=== PATIENT | female | born 1965 | race Asian ===

== ENCOUNTER 2018-06-17 05:20 | Inpatient (IN) | payer OTHER ==
[~2018-06-17] VITALS: Ht 157.5 cm; Wt 76.9 kg
--- NOTE | 2018-06-17 05:35 | NUR ---
PT BIB [facility] PER MEDIC, PT C/O GENERALIZED WEAKNESS AND SLOW SPEECH. PATIENT'S NOTICED PATIENT WAS SLOW TO SPEAK WHEN HE WOKE HER UP AN HOUR AGO AT HOME SO HE CALLED MEDICS. PER MEDIC PT HAS DM BUT HE WAS UNABLE TO GET MED REC. PT UNABLE TO RECALL MEDS. IV ESTABLISHED BOLUS OF NS STARTED SENIOR TREASURY ANALYST, 450ML HAVE BEEN INFUSED AT THIS TIME. FLUIDS STILL INFUSING WIDE OPEN NO PROB. PT IS AAOX4, SLOW TO SPEAK BUT ANSWERS ARE APPROPRIATE. PT ABLE TO FOLLOW COMMANDS. PT DENIES ANY PAIN, NAUSEA, DIZZINESS. PT PLACED ON FULL CM, SINUS TAWANNA, HYPOTHERMIC, NOTIFIED MD OF VSS. PLACED MULTIPLE BLANKETS ON PT. AWAITING FURTHER ORDERS.
--- NOTE | 2018-06-17 06:13 | NUR ---
SHADING PAINTER BRIAN AT BEDSIDE INITIATING MEDI THERM (WARMING THERAPY) ALONG WITH JANN HE AND ASSET MANAGEMENT COORDINATORSMITHA ECHOLS AND TRESA
--- NOTE | 2018-06-17 06:22 | NUR ---
OBTAINED URINE VIA STRAIGHT CATHETER. PT TOLERATED PROCEDURE WELL. NO SIGNS OF DISTRESS NOTED. RESP E/U.
--- NOTE | 2018-06-17 06:29 | NUR ---
XRAY AT BEDSIDE.
--- NOTE | 2018-06-17 07:00 | NUR ---
ASSISTED PT TO BEDPAN WITH JEAN-PIERRE HE.
--- NOTE | 2018-06-17 07:09 | NUR ---
REPORT RECEIVED FROM YING FORTE.
--- NOTE | 2018-06-17 07:09 | NUR ---
GAVE REPORT TO JEAN-PIERRE HE WHO WILL RESUME FURTHER CARE OF THIS PATIENT.
[2018-06-17 07:11] LABS: BASOPHIL % 0.3 % (0-2); PLATELET COUNT 215 x10^3mcL (130-400); RED CELL DISTRIBUTION WIDTH 13.7 % (11.5-14.5)
--- NOTE | 2018-06-17 07:24 | NUR ---
PT TAKEN TO CT.
[2018-06-17 07:29] LABS: microscopic required? YES; urine erythrocyte TRACE (NEGATIVE)
[2018-06-17 07:32] LABS: T3 TOTAL 0.92 ng/mL
[2018-06-17 07:36] LABS: BILIRUBIN TOTAL 0.21 mg/dL (0.20-1.00); CALCIUM 6.7 mg/dL (8.5-10.1); POTASSIUM SERUM 4.3 mmol/L (3.5-5.1); TOTAL PROTEIN, SERUM 6.9 g/dL (6.4-8.2)
--- NOTE | 2018-06-17 07:37 | NUR ---
WARMER ON PT, ON FULL CM, IN VIEW FROM NURSES STATION.
[2018-06-17 07:38] LABS: CREATININE SERUM 6.7 mg/dL (0.6-1.0)
[2018-06-17 07:39] LABS: FREE T4 1.12 ng/dL (0.76-1.46); FREE THYROXINE INDEX 2.7 ug/dL (1.4-4.5); T4(THYROXINE) 7.6 ug/dL (4.7-13.3)
--- NOTE | 2018-06-17 07:44 | NUR ---
PT IN POSITION OF COMFORT, TABITHA RAILS FOR SAFETY.
--- NOTE | 2018-06-17 07:49 | NUR ---
RT AT BEDSIDE.
--- NOTE | 2018-06-17 08:30 | NUR ---
PER PT'S PT WAS DX WITH A "WEAK KINDEY LAST YEAR",
--- NOTE | 2018-06-17 08:55 | NUR ---
DR LUTZ AT BEDSIDE TO DISCUSS POC WITH PT AND .
[2018-06-17] MEDS ORDERED: GLIPIZIDE ER2.5 M1 PO (09:12)
[2018-06-17] MEDS ORDERED: AMLODIPINE BESYL5 M2 PO (09:14)
[2018-06-17] MEDS ORDERED: CARVEDILOL12.5 M1 PO (09:15)
[2018-06-17] MEDS ORDERED: GLIPIZIDE ER5 M1 PO (09:15)
--- NOTE | 2018-06-17 09:30 | NUR ---
REPORT GIVEN TO YING SAEED TO ASSUME CARE OF PT.
--- NOTE | 2018-06-17 09:32 | NUR ---
RECIEVED PT FROM ED ACCOMPANIED BY RN AND EMT. PT TRANSFERED TO ICU1 AND PLACED ON FULL MONITOR. RHYTHM SHOWING FIRST DEGREE AVB; NIBP 130/75 MAP 96 HR 72. PT ADMITTED WITH HYPOTHERMIA, RECTAL TEMP OF 97.0 F. PT PLACED ON WARMING BLANKET AND PROVIDED WITH ADDITIONAL WARM BLANKETS. PT APPEARS SLEEPY WITH SLOW SPEECH. A/O X 4 AND ANSWERS ALL QUESTIONS APPROPRIATELY. BREATHING EVEN AND UNLABORED ON ROOM AIR. LUNG SOUNDS CTA BILAT WITH NO ACUTE RESP DISTRESS NOTED, SPO2 97%. BOWEL SOUNDS ACTIVE X4 QUADRANTS. REPORTS SHE HAD BM IN ED TODAY. VOIDS FREELY WITH NO C/O DYSURIA. BILAT PEDAL AND RADIAL PULSES STRONG WITH CAP REFILL WNL. SKIN INTACT WITH NO WOUNDS OR EDEMA NOTED. IV TO LEFT WRIST AND IV TO LAC FLUSH WELL WITH NO INFILTRATION NOTED. ORIENTED PT TO ROOM AND CALL LIGHT. BED IN LOW POSITION WITH SIDERAILS X2. AT BEDSIDE. WILL CONT TO MONITOR.
[2018-06-17 09:53] VITALS: BP 130/75
--- NOTE | 2018-06-17 10:48 | NUR ---
ONOFRE CATH INSERTED AT THIS TIME USING ASEPTIC TECHNIQUE. PT TOLERATED WELL. APPROX 250ML OF CLEAR YELLOW URINE NOTED; URINE SAMPLE COLLECTED FOR URINE SODIUM PER ORDERS.
[2018-06-17 11:01] VITALS: Ht 157.5 cm; Wt 76.9 kg
[2018-06-17 11:29] VITALS: BP 123/72
--- NOTE | 2018-06-17 12:24 | NUR ---
PT INFORMED LUNCH TRAY HAS ARRIVED AND ASKED HER IF SHE WANTED TO EAT, PT STATED "NO THANK YOU. I'M OKAY". BS WAS 125 WHEN CHECKED. RECTAL TEMP NOTED AT 98.4F, WARMING BLANKET MODE CHANGED TO MONITOR PT ONLY AT THIS TIME. WILL CONT TO MONITOR.
[2018-06-17 12:32] LABS: CALCIUM 6.8 mg/dL (8.5-10.1); CARBON DIOXIDE 18.5 mmol/L (21-32); POTASSIUM SERUM 3.8 mmol/L (3.5-5.1)
[2018-06-17 12:34] LABS: CREATININE SERUM 6.8 mg/dL (0.6-1.0)
--- NOTE | 2018-06-17 12:45 | NUR ---
RECIEVED CALL FROM DR. MAIER AND PROVIDED UPDATES, NO FURTHER ORDERS AT THIS TIME. PER DR. MAIER SHE WILL BE IN LATER TO SEE PT.
--- NOTE | 2018-06-17 13:31 | NUR ---
PT RESTING AND EASILY AROUSABLE TO VERBAL STIMULI. PT VERBALLY RESPONDING MORE BRISK HOWEVER STILL HAS SOFT SPOKEN VOICE. AT BEDSIDE. WILL CONT TO MONITOR.
--- NOTE | 2018-06-17 14:22 | NUR ---
DR. MAIER IN UNIT TO SEE AND ASSESS PT. PT A/O X4 AND MORE AWAKE WITH APPROPRIATE RESPONSE. PT AND PT'S , BORA, PROVIDED UPDATE FROM DR. MAIER WITH ALL QUESTIONS ADDRESSED. PER DR. MAIER PT TO THINK ABOUT RECIEVING HD HER KIDNEY FUNCTION IS POOR. PT VERBALIZING SHE IS SCARED OF HD BUT WILL TALK IT OVER WITH HER .
--- NOTE | 2018-06-17 15:10 | NUR ---
PT WITH SOFT MODERATE BROWN BM VIA BEDPAN. HYIGENE CARE PROVIDED. CALL LIGHT IN REACH. WILL CONT TO MONITOR.
[2018-06-17 16:07] VITALS: BP 119/73
--- NOTE | 2018-06-17 19:03 | NUR ---
REPORT GIVEN TO JOHNIE HE, ALL CARE ENDORSED.
--- NOTE | 2018-06-17 19:05 | NUR ---
RECEIVED REPORT FROM DARLIN HE. UPDATES PROVIDED. ALL QUESTIONS ADRESSED AND ANSWERED. WILL RESUME CARE.
--- NOTE | 2018-06-17 19:08 | NUR ---
RECEIVED PT AWAKE, ALERT, AND ORIENTED X4. ABLE TO FOLLOW COMMANDS. RESPONDS TO VERBAL, TACTILE, AND PAINFUL STIMULUS. DENIES HEADACHE. PUPILS 3MM IN SIZE AND BRISK IN RESPONSE TO LIGHT. ON ROOM AIR. BREATHING IS E/U. NO SIGNS OF RESP DISTRESS NOTED. VS = BP: 120/60 (87), HR: 73, RR: 16, O2 SAT: 99%, RHYTHM = 1ST DEGREE AV BLOCK. DENIES CP, SYNCOPE, AND DIZZINESS. SKIN IS WARM AND DRY, BROWN/DOMINGUEZ IN COLOR. NO EDEMA NOTED. CAP REFILL <3 SEC TO BUE AND BLE. MOD PULSES TO BUE AND BLE. PIV TO L WRIST AND L AC SECURED, PORTS PATENT, DRESSINGS CDI. D5 + BICARB INFUSING @ 50 ML/HR. ABD IS SOFT AND ROUNDED. NO BM AT THIS TIME. F/C INTACT, DRAINING VIA GRAVITY, NO DEPENDENT LOOPS NOTED. URINE IS YELLOW IN COLOR AND CLEAR, NO SEDIMENTS NOTED. FAIR OUTPUT NOTED. SKIN IS INTACT. NO WOUNDS NOTED. BED IN LOWEST POSITION, X3 SIDE RAILS UP, CALL LIGHT WITHIN REACH. PT UPDATED ON POC FOR THIS SHIFT.
[2018-06-17 19:10] VITALS: BP 120/60
--- NOTE | 2018-06-17 21:58 | NUR ---
INFILTRATION TO L WRIST IV NOTED AND HAS BEEN DISCONTINUED. PT TOLERATED WELL.
[2018-06-17 22:16] VITALS: BP 136/82
[2018-06-18 03:26] VITALS: BP 123/72
[2018-06-18 04:53] LABS: BASOPHIL % 0.4 % (0-2); PLATELET COUNT 236 x10^3mcL (130-400); RED CELL DISTRIBUTION WIDTH 13.7 % (11.5-14.5)
[2018-06-18 05:17] LABS: CALCIUM 7.5 mg/dL (8.5-10.1); CARBON DIOXIDE 23.1 mmol/L (21-32); MAGNESIUM 1.8 mg/dL (1.8-2.4); PHOSPHOROUS 5.6 mg/dL (2.5-4.9); POTASSIUM SERUM 3.4 mmol/L (3.5-5.1)
[2018-06-18 05:19] LABS: IRON 58 ug/dL (50-170)
[2018-06-18 05:36] LABS: TOTAL IRON BINDING CAPACITY 199 ug/dL (250-450)
[2018-06-18 05:37] LABS: CREATININE SERUM 6.9 mg/dL (0.6-1.0)
--- NOTE | 2018-06-18 05:50 | NUR ---
DR. MAIER AT BEDSIDE ASSESSING PT AND ASKING IF PT AND HAS MADE A DECISION ABOUT DIALYSIS. HOWEVER, PT AND HAVE NOT DISCUSSED/MADE A DECISION AT THIS TIME. NO NEW ORDERS FOR HD. PER DR. MAIER, PT'S LABS CAME BACK AND A NEW ORDER FOR FLUID CHANGE TO BE 1/2 NS WITH 1 AMP OF BICARB (50ML) TO BE INFUSED @ 50ML/HR.
--- NOTE | 2018-06-18 07:07 | NUR ---
GIVEN REPORT TO HIRAM HE. UPDATES PROVIDED. ALL QUESTIONS ANSWERED AND ADDRESSED.
--- NOTE | 2018-06-18 07:10 | NUR ---
REPORT GIVEN BY JOHNIE HE. ALL QUESTIONS ANSWERED.
--- NOTE | 2018-06-18 07:15 | NUR ---
PATIENT IS IN BED SLEEPING. BED IS TO THE LOWEST POSITION. PATIENT IS ON ROOM AIR, NO SIGNS OF RESPIRATORY DISTRESS. SUPERVISOR BOATBUILDERS WOOD IN PLACE, FIRST DEGREE HEART BLOCK. ABDOMEN IS ROUND AND FLAT. NO BOWEL MOVEMENT. ONOFRE CATHETER IS IN PLACE AND DRAINING VIA GRAVITY. URINE IS YELLOW IN COLOR WITH FAIR AMOUNT OF OUTPUT. LEFT AC IS INTACT AND D5 AND BICARB ARE INFUSING AT 50ML/HR. PATIENT IS CALM AND COOPERATIVE AND ABLE TO FOLLOW COMMANDS. PRESSURE POINTS ARE OFF LOADED WITH PILLOWS. CALL LIGHT IS WITHIN REACH, WILL CONTINUE TO MONITOR.
[2018-06-18 07:36] VITALS: BP 132/77
--- NOTE | 2018-06-18 08:40 | NUR ---
CALLED PHARMACY FOR VERIFICATION ON TYLENOL, AND MORPHINE.
--- NOTE | 2018-06-18 09:07 | NUR ---
CALLED PHARMACY FOR VERIFICATION ON TYLENOL AND MORPHINE.
--- NOTE | 2018-06-18 09:20 | NUR ---
CALLED PHARMACY. SPOKE WITH RUSSELL FOR VERIFICATION OF PATIENTS MORPHINE AND TYLENOL.
--- NOTE | 2018-06-18 09:34 | NUR ---
GAVE PATIENT 1MG OF MORPHINE, SEE EMAR. PATIENT STATES THERE PAIN IS 9/10. WILL CONTINUE TO MONITOR.
[2018-06-18 11:41] VITALS: BP 134/73
--- NOTE | 2018-06-18 14:54 | NUR ---
PATIENT STATES THAT THEIR PAIN IN LEG IS 9/10. MORPHINE GIVEN FOR PAIN, SEE EMAR.
--- NOTE | 2018-06-18 15:31 | NUR ---
PATIENT SITTING UP IN CHAIR, PATIENT JUST RECEIVED PHYSICAL THERAPY. PATIENT STABLE, WILL CONTINUE TO MONITOR.
--- NOTE | 2018-06-18 15:41 | NUR ---
REPORT GIVEN TO YING LYNCH. ALL QUESTIONS AND CONCERNS ADDRESSED.
--- NOTE | 2018-06-18 15:55 | NUR ---
PATIENTS BELONGINGS TAKEN WITH PATIENT. GLASSES AND CELL PHONE
--- NOTE | 2018-06-18 16:24 | NUR ---
RECEIVED PATIENT FROM ICU1. PATIENT A/A/OX3. SPEECH CLEAR. TELE#21, SR; HR =77; NO RESP DISTRESS ON RA. O2 SAT 98%. C/O GENERAL WEAKNESS AND WHOLE BODY PAIN. ONOFRE PATNET W/ LIGHT YELLOW URINE OUTPUT. TEMP = 99.7 (ORAL) - [id number]/75. IVHL'D TO LAC. CALL LIGHT IN REACH. CONTINUE MONITOR.
[2018-06-18 16:29] VITALS: BP 145/75
--- NOTE | 2018-06-18 18:53 | NUR ---
FINISHED 75% OF RENAL DIET DINNER. NO N/V. ONOFRE URINE OUTPUT 150 CC MEASURED SINCE 1600. PER REPORT FROM ICU NURSE. PATIENT HAD UOP 2000 CC IN ICU FROM 6AM TO 4PM. NO BM TODAY. ENDORSED CARE TO NOC NURSE.
--- NOTE | 2018-06-18 19:15 | NUR ---
RECEIVED PT FROM DAY SHIFT RN. PT IS AA&O X 4 AND ABLE TO FOLLOW COMMANDS. PT CURRENTLY RESTING IN BED WITH FAMILY AT THE BEDSIDE. NO CHEST PAIN OR SHORTNESS OF BREATH. NO USE OF ACCESSORY MUSCLES OR LABORED BREATHING ON ASSESSMENT. LUNG SOUNDS ARE CLEAR TO AUSCULTATION ON ROOM. PT IS ON TELE #21. ONOFRE CATHETER NOTED WITH YELLOW URINE. PT TOLERATING WELL. IV CLEAN DRY AND INTACT AT THIS TIME. SAFETY MEASURES ARE IN PLACE. WILL CONTINUE TO MONITOR.
[2018-06-18 20:46] VITALS: BP 135/75
--- NOTE | 2018-06-18 22:55 | NUR ---
PT COMPLAINED OF LLE PAIN. TYLENOL GIVEN PER PATIENT REQUEST. WILL CONTINUE TO MONITOR.
--- NOTE | 2018-06-19 03:48 | NUR ---
PT RESTING IN BED WITH EYES CLOSED. NO SIGNS OF DISTRESS NOTED. NO FACIAL GRIMMACING. SAFETY MEASURES IN PLACE. WILL CONTINUE TO MONITOR.
[2018-06-19 05:23] VITALS: BP 136/78
--- NOTE | 2018-06-19 06:31 | NUR ---
PT SLEPT THROUGHOUT THE NIGHT. PT DENIES CHEST PAIN OR SHORTNESS OF BREATH AT THIS TIME. SAFETY MEASURES ARE IN PLACE. CALL LIGHT IS WITHIN REACH. WILL ENDORSE TO DAY SHIFT RN.
[2018-06-19 07:31] LABS: BASOPHIL % 0.4 % (0-2); PLATELET COUNT 242 x10^3mcL (130-400); RED CELL DISTRIBUTION WIDTH 13.9 % (11.5-14.5)
[2018-06-19 07:42] LABS: CALCIUM 8.3 mg/dL (8.5-10.1); CARBON DIOXIDE 24.7 mmol/L (21-32); POTASSIUM SERUM 3.9 mmol/L (3.5-5.1)
--- NOTE | 2018-06-19 08:00 | NUR ---
RECEIVED PATIENT SLEEPY BUT ARROUSABLE. PATIENT HAS BEEN ON BEDREST AND TOLERATE DIET AND FLUIDS WELL. SHE HAS NOTED BUN OF 101 AND CREATININE AT 6.8 SHE HAS HAD NOTED LAB OF WBCS AT 13.2 AND SHE HAS BEEN WITH LAST BLOOD SUGAR AT 116. VIPIN TAHS DIMINISHED BREATH SOUNDS AND BOWEL SOUNDS ACTIVE. SHE HAS NOTED A DECREASE IN THE CORTICAL OF THE KIDNEY AND HAS BEEN WITH CT OF THE HEAD THAT WAS NEGATIVE. PATIENT HAS GENERAL WEAKNES AND PLAN ON AND OFF TO THE LOWR EXTREMITES WITH EDEMA OF 2 PLUS BILATERALY. VIPIN HAS BEEN ON A RENAL DIET AND WITH NO KNOWN ALLERGIES. SHE IS NORMAL SINUS ON THE MONITOR. WILL CONTINUE TO MONTIOR AND INFORM ON RENAL OPTIONS INDICATED. VITALS AT THIS TIME 99.7, 81, 18, 134/78, 98% ON ROOM AIR.
[2018-06-19 08:15] LABS: CREATININE SERUM 6.7 mg/dL (0.6-1.0)
[2018-06-19 10:11] VITALS: BP 134/73
[2018-06-19 11:16] VITALS: BP 134/73
--- NOTE | 2018-06-19 11:21 | NUR ---
PATIENTS ONOFRE REMOVED AND TOLERATED WELL. SUPPLIED A BEDSIDE COMODE FOR THE PATIENT AN HEBER LEON. PATIENT HAS ORDER FOR REMOVAL OF THE ONOFRE YESTERDAY AND SHE DID NOT HAVE TILL NOW. PATIENT IS RESTING QUIELTY AT THIS TIME AND PLAN OF CARE IS FOR DISCHARGE HOME TODAY. SHE WAS ADVISE DOF THE INDICATED NEDED OF DIALYSIOS OPTION AND ENCOURAGED THE PATIENT AN DFOMILY TO DISCUSS THE OPTIONS FOR THIS WITH THE NEPHORLOGIST. PATIENT AHS COMPLAINTS OF PAIN TO CRISTAL LEGS BILATERALY AND IT IS THE REASON SHE DOES NOT WANT OT GET UP AND WALK. TYLENOL WAS GIVEN EARLIER AND MILDLY EFFECTIVE. SHE REFUSED ANYTHING STRONGER AT THIS TIME.
--- NOTE | 2018-06-19 13:43 | NUR ---
WENT OVER DISCHARGE PAPERWORK AND A PRESCRIPTION FO RTHE STRIPS AND THE LANCETS RECEIVE FOR THE PATIENT TO USE HER GLUCOMETER AT HOME. APTIENT WAS DISCHARGE HOME WITH THE SPOUSE AND TO FOLLOW UP WITH THE NEPHOLOGIST INDICATED. PAPER INSTRUCTIONS AND EDUCATION GIVEN.
--- NOTE | 2018-06-19 16:44 | NUR ---
PHYSICAL THERAPY DAILY NOTES CO-SIGN All documentation done by the [employer] Supervisor for 06/19/18 has been reviewed. I agree with the documentation. Reviewed/Co-Signed by: Scar Bueno PT Documentation Done by:DEEPTHI DUMAS PTA
== END 2018-06-19 13:41 | disposition home or self-care (01) | DRG 469 ==
LOC: ED 05:20 → IC 08:32 → DU 06-18 16:07
PROVIDERS: Emergency Medicine; Internal Medicine Nephrology; ADMIT Family Medicine
DX: N17.9 Acute kidney failure, unspecified (principal); J96.00 Acute respiratory failure, unspecified whether with hypoxia or hypercapnia; E11.22 Type 2 diabetes mellitus with diabetic chronic kidney disease; E11.649 Type 2 diabetes mellitus with hypoglycemia without coma; E87.2 Acidosis; R68.0 Hypothermia, not associated with low environmental temperature; I12.9 Hypertensive chronic kidney disease with stage 1 through stage 4 chronic kidney disease, or unspecified chronic kidney disease; N18.9 Chronic kidney disease, unspecified; Z83.3 Family history of diabetes mellitus; Z82.49 Family history of ischemic heart disease and other diseases of the circulatory system; D64.9 Anemia, unspecified; D72.829 Elevated white blood cell count, unspecified; E83.51 Hypocalcemia; Z91.19 Patient's noncompliance with other medical treatment and regimen; E87.0 Hyperosmolality and hypernatremia; E83.39 Other disorders of phosphorus metabolism
CPT/HCPCS: 36600; 82962; 84439; 97110-GP; 97116-GP; 97530-GP; C9113; J2270; J3490; J7030; Q0092

== ENCOUNTER 2018-09-09 21:43 | Inpatient (IN) | payer OTHER, MEDICAID ==
[~2018-09-09] VITALS: Ht 157.5 cm; Wt 75.5 kg
[~2018-09-09 21:43] MED LIST: AMLODIPINE BESYL5 M2 PO; CARVEDILOL12.5 M1 PO; GLIPIZIDE ER2.5 M1 PO; GLIPIZIDE ER5 M1 PO
[2018-09-09 21:54] VITALS: Ht 157.5 cm; Wt 75.5 kg
--- NOTE | 2018-09-09 22:53 | NUR ---
PT BROUGHT TO ROOM BY WHEELCHAIR AND ASSISTED TO BED. PT AAOX4 WITH C/O 10/10 THROBBING PAIN TO TABITHA FLANKS, MORE ON RT, X 2 WEEKS AND PAINFUL/BURNING URINATION WITH RETENTION. PT DENIES ANY N/V/D/C, FEVERS OR RESP ILLNESS AT THIS TIME. AT BEDSIDE. PT LYING ON LT SIDE FOR COMFORT.
--- NOTE | 2018-09-09 23:55 | NUR ---
PT GIVEN IV MORPHINE FOR BACK/FLANK PAIN WITH 2ND 1000ML NS BOLUS FOR CONTINUED LOW BP. DR MARY LAU.
--- NOTE | 2018-09-10 00:15 | NUR ---
METHODS TIME ANALYST AT BEDSIDE FOR BLOOD DRAW.
[2018-09-10 00:56] LABS: PLATELET COUNT 250 x10^3mcL (130-400); RED CELL DISTRIBUTION WIDTH 13.8 % (11.5-14.5)
[2018-09-10 00:57] LABS: BASOPHIL % 0 % (0-2)
--- NOTE | 2018-09-10 01:02 | NUR ---
PT PLACED ON BED FOR URINE SAMPLE.
[2018-09-10 01:07] LABS: BILIRUBIN TOTAL 0.38 mg/dL (0.20-1.00); CALCIUM 7.1 mg/dL (8.5-10.1); POTASSIUM SERUM 5.1 mmol/L (3.5-5.1); TOTAL PROTEIN, SERUM 6.5 g/dL (6.4-8.2)
[2018-09-10 01:14] LABS: ALBUMIN 2.3 g/dL (3.4-5.0)
[2018-09-10 01:23] LABS: CARBON DIOXIDE 6.9 mmol/L (21-32); CREATININE SERUM 14.4 mg/dL (0.6-1.0)
[2018-09-10 01:24] LABS: UA SPECIFIC GRAVITY 1.025 (1.005-1.035); microscopic required? YES; urine erythrocyte 3+ (NEGATIVE)
--- NOTE | 2018-09-10 01:27 | NUR ---
LEVOPHED STARTED FOR CONTINUED LOW BP AFTER 2 BOLUSES.
[2018-09-10] MEDS ORDERED: LOSARTAN POTASS25 M1 PO (01:34)
--- NOTE | 2018-09-10 01:34 | NUR ---
LEVOPHED TITRATED UP TO 4MCG/MIN
--- NOTE | 2018-09-10 01:40 | NUR ---
PT MOVED TO BED 1 FOR CLOSER MONITORING PT PLACED IN TRENDELENBERG FOR INCREASED BRAIN PERFUSION REPORT RECEIVED FROM CARLITA Minaya RN
--- NOTE | 2018-09-10 01:43 | NUR ---
LEVO TITRATED TO 6MCG/MIN TO INCREASE PT BP FOR MAP ABOVE 65. 22.5ML/HR
--- NOTE | 2018-09-10 01:49 | NUR ---
PT STATES HER LAST URINATION WAS A FEW HOURS AGO WHILE SHE WAS IN THE HOSPITAL. PER MD HERNANDEZ THERE IS NO NEED FOR A ONOFRE AT THIS TIME. WILL CONTINUE TO MONITOR U.O. AND BLADDER SCAN TO SEE IF PT STILL PRODUCING URINE ADEQUATELY
--- NOTE | 2018-09-10 01:50 | NUR ---
LEVO INCREASED TO 8MCG/MIN
--- NOTE | 2018-09-10 01:51 | NUR ---
PT IS AXO X4. PT IS SPEAKING IN 1 TO 2 WORD SENTENCES. PT APPEARS TO BE SPEAKING SLOWLY AND BECOMING INCREASINGLY MORE LETHARGIC. PT APPEARS UNCOMFORTABLE. PT STATES THAT SHE HAS MILD BACK PAIN SHE RATES A 2/10. AT BEDSIDE. PT STILL HAS EYES OPEN WITH EQUAL AND UNLABORED RESPIRATIONS.
--- NOTE | 2018-09-10 01:57 | NUR ---
LEVO TITRATED TO 10MCG/ MIN TO MAINTAIN MAP OF 65 SEE VITALS
--- NOTE | 2018-09-10 02:04 | NUR ---
PT TAKEN TO CT
--- NOTE | 2018-09-10 02:05 | NUR ---
PT TAKEN TO CT ESCORTED BY ME AND FINAL TOUCH UP PAINTER. LEVO STILL RUNNING AT 10MCG/MIN. CARDIAC MONITORS IN PLACE
--- NOTE | 2018-09-10 02:15 | NUR ---
ATTEMPTED TO CALL LAB MULTIPLE TIMES TO SEND URINE THEY ALREADY HAVE FOR DRUG SCREEN AND CULTURE. NO ANSWER X3
--- NOTE | 2018-09-10 02:16 | NUR ---
PT RETURNED FROM CT PT NO LONGER IN [place] FOR PT COMFORT PT MAP 75 SEE VITALS. MD HERNANDEZ MADE AWARE
--- NOTE | 2018-09-10 02:27 | NUR ---
PT BLOOD PRESSURE SEEMS TO BE MORE STABILIZED (SEE VITALS) ON 10MCG/MIN OF LEVOPHED. MD HERNANDEZ MADE AWARE. PT PROVIDED WITH SOCKS AND WARM BLANKETS TO MAINTAIN TEMPERATURE. STILL AT BEDSIDE. PT STILL ALERT AND ORIENTED
--- NOTE | 2018-09-10 02:33 | NUR ---
CALLED ICU TO CHECK ON BED STATUS THEY SAID THE NURSE JUST ARRIVED AND THEY WILL CALL BACK WITH A BED IN A FEW MINUTES
--- NOTE | 2018-09-10 02:41 | NUR ---
PT RECTAL TEMP IN 94.0. GAYMAR WILL BE UTILIZED PT IN ICU
--- NOTE | 2018-09-10 02:44 | NUR ---
RECEIVED REPORT FROM YING AKHTAR FROM ED. ALL QUESTIONS AND CONCERNS ADDRESSED.
--- NOTE | 2018-09-10 02:44 | NUR ---
REPORT GIVEN TO ARNOLDO HE. PT BEING TRANSPORTED TO THE ICU NOW FOR WARMER NICKO
[2018-09-10 02:46] LABS: MAGNESIUM 2.1 mg/dL (1.8-2.4)
[2018-09-10 02:47] LABS: CHOLESTEROL/HDL RATIO 6.8
--- NOTE | 2018-09-10 02:51 | NUR ---
PT ARRIVED TO UNIT AT THIS TIME VIA GURNEY FROM ED WITH EMT AND ED RN PT BROUGTH TO ICU 5 AND PLACED IN FULL ENVIRONMENTAL SERVICES TECHNICIAN. PT IS A/O X4, SPEECH IS CLEAR AND FOLLOWS COMMANDS. EYE OPEN SPONTANOUSLYAND PUPILS REACT BRISK TO LIGHT 4MM. CHEST RISE AND FALL EQUAL AND UNLABORED. LS CLEAR BILATERAL. PT IS LEVOPHED AT 10MCG/MIN AND BP AND VS STABLE AT THIS TIME. SKIN IS WARM DRY DOMINGUEZ AND INTACT. PT HAS 18G IV TO RT AC AND 20G IV TO LT AC, BOTH PATENT, SECURE AND FLUSING WELL. PT SHOWS NO SIGNS OR COMPLAINTS OF ACUTE DISTRESS AT THIS TIME. BED LEFT IN THE LOWEST POSITION AND CALL LIGHT LEFT WITHIN REACHT. WILL CONTINUE TO MONITOR.
[2018-09-10 02:53] LABS: FREE T4 1.22 ng/dL (0.76-1.46); FREE THYROXINE INDEX 2.4 ug/dL (1.4-4.5); T4(THYROXINE) 6.8 ug/dL (4.7-13.3)
[2018-09-10 02:57] LABS: PHOSPHOROUS 9.6 mg/dL (2.5-4.9)
[2018-09-10 03:06] VITALS: BP 125/42
--- NOTE | 2018-09-10 03:18 | NUR ---
RESIDENT AT BEDSIDE FOR RECTAL EXAM, PT IS (+) FOR OCCULT BLOOD.
[2018-09-10 03:23] LABS: T3 TOTAL 0.5 ng/mL
--- NOTE | 2018-09-10 03:56 | NUR ---
LEVOPHED TITRATED DOWN FROM 10MCG/MIN TO 9MCG/MIN.BP 106/51,MAP 74
--- NOTE | 2018-09-10 04:14 | NUR ---
LEVOPHED TITRATED UP FROM 9MCG/MIN TO 12MCG/MIN, BP 74/48 AND MAP 54.
--- NOTE | 2018-09-10 07:10 | NUR ---
RECEIVING REPORT FROM YING TURCIOS.
[2018-09-10 07:20] VITALS: BP 101/47
--- NOTE | 2018-09-10 07:20 | NUR ---
THE PATIENT AWAKE AND ORIENTED TO PERSON, PLACE AND TIME WITH CLEAR SPEECH AND MAKES NEEDS KNOWN. PATIENT DENIES NAUSEA/VOMITING, SHORTNESS OF BREATH OR PAIN AT THIS TIME WHILE RESTING IN BED. IVF NS AT 50ML/HR VIA IV AT LAC. LEVOPHED AT 12MCG/MIN VIA IV AT RAC (18G). RECTAL GAYMAR TEMPERATURE TO MONITOR THE PATIENT'S TEMP. CALL LIGHT WITHIN REACH. SIDE RAILS UP X3. THE AT BEDSIDE.
--- NOTE | 2018-09-10 07:50 | NUR ---
HOGSHEAD ROLLER IS AT BEDSIDE FOR ECHO.
--- NOTE | 2018-09-10 08:07 | NUR ---
DR. CHANEY IN TO SEE THE PATIENT.
[2018-09-10 08:41] LABS: BASOPHIL % 0.1 % (0-2); PLATELET COUNT 270 x10^3mcL (130-400)
--- NOTE | 2018-09-10 08:44 | NUR ---
DR. PARKER-NEPHORLOGIST CALLED IN AND WAS UPDATED. DOCTOR GAVE VERBAL ORDER/READ BACK IVF NS AT 150ML/HR. WILL CARRY OUT.
[2018-09-10 08:53] LABS: BILIRUBIN TOTAL 0.44 mg/dL (0.20-1.00); CALCIUM 7.1 mg/dL (8.5-10.1); POTASSIUM SERUM 4.7 mmol/L (3.5-5.1); TOTAL PROTEIN, SERUM 6.6 g/dL (6.4-8.2)
--- NOTE | 2018-09-10 09:25 | NUR ---
DR. PORRAS IN TO SEE THE PATIENT.
[2018-09-10 09:29] LABS: ALBUMIN 2.3 g/dL (3.4-5.0); CARBON DIOXIDE 5.1 mmol/L (21-32); CREATININE SERUM 14.5 mg/dL (0.6-1.0)
--- NOTE | 2018-09-10 09:30 | NUR ---
ONOFRE CATH WAS INSERTED ORDERED. SOME CLEAR YELLOW URINE OUTPUT IS COMING OUT FROM ONOFRE CATH.
--- NOTE | 2018-09-10 09:37 | NUR ---
DR. MATTA, RESIDENTS, STEAM HAMMER OPERATOR AND PRIMARY RN AT BEDSIDE FOR ROUNDING. PLAN OF CARE DISCUSSED WITH PT. ALL PARTIES IN AGREEMENT.
--- NOTE | 2018-09-10 09:50 | NUR ---
GEORGINA WIPES PROVIDED TO THE PATENT. THEN, PATIENT TAKEN TO OR FOR INCISION AND DRAINAGE OF PERIANAL ABSCESS.
--- NOTE | 2018-09-10 11:19 | NUR ---
RECEIVING THE PATIENT BACK FROM OR DEPT S/P INCISION AND DRAINAGE OF PERIRECTAL ABSCESS. PATIENT DROWSY BUT AROUSABLE WITH VERBAL STIMULUS. PATIENT SLOW TO ANSWER THE QUESTIONS AND FALLING BACK TO SLEEP. PATIENT WAS HOOKED UP TO FULL MONITOR. DRESSING TO RIGHT LOWER BUTTOCK WITH MODERATE AMOUNT OF SEROSANGUINEOUS DRAINAGE. BP 93/43 (59); LEVEPHED WAS TITRATED FROM 12MCG/MIN TO 14MCG/MIN. CALL LIGHT WITHIN REACH. SIDE RAILS UP X3.
[2018-09-10 11:30] VITALS: BP 94/40
--- NOTE | 2018-09-10 11:31 | NUR ---
BP 88/32 AND MAP 52; LEVOPHED TITRATED FROM 14MCG/MIN TO 16MCG/MIN.
--- NOTE | 2018-09-10 11:45 | NUR ---
BP 90/32 AND MAP 63, SO LEVOPHED IS TITRATED FROM 16MCG/MIN TO 18MCG/MIN.
--- NOTE | 2018-09-10 12:30 | NUR ---
PATIENT IS MORE AWAKE AND ORIENTED TO PERSON, PLACE AND TIME. WITNESSING DR. CARBALLO OBDBINING THE CONSENT FOR ULTRASOUND GUIDED CENTRAL LINE PLACEMENT TO RIGHT VS. LEFT INTERNAL JUGULAR VEIN.
--- NOTE | 2018-09-10 12:40 | NUR ---
Discount pharmacy card and list to low cost medical clinics given to patient by Kailey Morillo.
--- NOTE | 2018-09-10 13:00 | NUR ---
DR. BRUNO, DR. CARBALLO AND [facility] ARE AT BEDSIDE FOR CENTRAL LINE PLACEMENT. TIME OUT IMPLIMENTED AT THIS TIME.
--- NOTE | 2018-09-10 13:20 | NUR ---
DR. PARKER ON PHONE WITH BORA LAUGHLIN, PATIENTS , EXPLAINED PT IS CURRENTLY DROWSY FROM SEDATION. EXPLAINED RISKS/BENEFITS OF HEMODIALYSIS, VIKI CATHETER PLACEMENT AND BLOOD TRANSFUSION. IS IN AGREEMENT WITH PROCEDURES. CONFIRMED BY MYSELF VIA TELEPHONE. CONSENT FORMS SIGNED
--- NOTE | 2018-09-10 13:21 | NUR ---
DR. PARKER IN TO SEE THE PATIENT. CENTRAL LINE PLACEMENT WAS CANCELLED. THE PATIENT MAY HAVE VIKI CATH PLACEMENT INSTEAD. DR. PARKER IS TALKING TO THE PATIENT'S BORA LAUGHLIN.
--- NOTE | 2018-09-10 13:23 | NUR ---
THE PATIENT'S , BORA LAUGHLIN AGREED FOR THE PATIENT TO HAVE VIKI CATH PLACEMENT AND HEMODIALYSIS FOR THE PATIENT (THE PATIENT WAS SEDATED WITH ATIVAN AND UNABLE TO SIGN THE CONSENT AT THIS TIME.)
--- NOTE | 2018-09-10 14:20 | NUR ---
VIKI CATH PLACEMENT WAS DONE TO THE RIGHT SIDE OF THE NECK. XR TECH IS AT BEDSIDE FOR XR TO CONFIRM THE VIKI CATH PLACEMENT.
--- NOTE | 2018-09-10 15:08 | NUR ---
CHARGEMASTER SPECIALIST IS AT BEDSIDE FOR KIDNEY ULTRASOUND.
--- NOTE | 2018-09-10 15:11 | NUR ---
HEMODIALYSIS NURSE IS AT BEDSIDE FOR HEMODIALYSIS.
--- NOTE | 2018-09-10 15:15 | NUR ---
BP 88/50 AND MAP 59; LEVOPHED IS TITRATED FROM 18MCG/MIN TO 20MCG/MIN.
[2018-09-10 15:42] LABS: AMPHETAMINE QUAL UR NONE DETECTED (See below)
[2018-09-10 15:45] VITALS: BP 101/54
--- NOTE | 2018-09-10 16:45 | NUR ---
BP 136/76 AND MAP 106; LEVOPHED TITRATED FROM 20MCG/MIN DOWN TO 18MCG/MIN.
--- NOTE | 2018-09-10 17:00 | NUR ---
AT 1630, THE [facility] UNIT WAS TRANSFUSED TO THE PATIENT BY HEMODIALYSIS NURSE DURING HEMODIALYSIS PROCESS. AT 1700 THE BLOOD TRANSFUSION COMPLETED. NO ADVERSE REACTION NOTED.
--- NOTE | 2018-09-10 17:00 | NUR ---
BP 134/72 AND MAP 93; LEVOPHED TITRATED DOWN FROM 18MCG/MIN TO 16MCG/MIN.
--- NOTE | 2018-09-10 17:32 | NUR ---
BP 129/78 AND MAP 86; LEVOPHED TITRATED FROM 16MCG/MIN DOWN TO 14MCG/MIN.
--- NOTE | 2018-09-10 17:54 | NUR ---
BP 131/52 (78) LEVOPHED TITRATED FROM 14 MCG/MIN TO 12 MCG/MIN.
--- NOTE | 2018-09-10 18:15 | NUR ---
HEMODIALYSIS COMPLETED WITH NO OUTPUT PER HEMODIALYSIS NURSE. BP 140/68 AND MAP 92; LEVOPHED TITRATED FROM 12MCG/MIN DOWN TO 10MCG/MIN.
--- NOTE | 2018-09-10 19:00 | NUR ---
BP 136/75 AND MAP 95; LEVOPHED TITRATED FROM 10MCG/MIN DOWN TO 8MCG/MIN. REPORT GIVEN TO ROSITA WOODRUFF RN. CONCERNS ADDRESSED.
--- NOTE | 2018-09-10 19:06 | NUR ---
RECEIVED REPORT FROM ROBERT HE. WILL RESUME CARE.
[2018-09-10 19:20] VITALS: BP 144/58
--- NOTE | 2018-09-10 19:20 | NUR ---
LEVOPHED DECREASED FROM 8MCG/MIN TO 6MCG/MIN. BP 144/58. MAP 90.
--- NOTE | 2018-09-10 19:20 | NUR ---
LEVOPHED DECREASED FROM 8MCG/MIN TO 7MCG/MIN. BP 144/58. MAP 90.
--- NOTE | 2018-09-10 19:37 | NUR ---
PT COMPLAINING OF HEADACHE W/ LIGHT SENSITIVITY, 10/10 ON PAIN SCALE. MEDICATED WITH PRN NORCO.
--- NOTE | 2018-09-10 21:08 | NUR ---
LEVOPHED GTT DECREASED FROM 6MCG/MIN TO 4MCG/MIN. B/P 128/58. MAP 81.
--- NOTE | 2018-09-10 21:08 | NUR ---
LEVOPHED GTT DECREASED FROM 7MCG/MIN TO 6MCG/MIN. B/P 128/58. MAP 81.
--- NOTE | 2018-09-10 21:17 | NUR ---
DR. MARTINEZ CALLED UNIT. UPDATES PROVIDED. NO NEW ORDERS AT THIS TIME.
--- NOTE | 2018-09-10 21:48 | NUR ---
LEVOPHED TITRATED FROM 4MCG/MIN TO 2MCG/MIN. B/P 131/66. MAP 88.
--- NOTE | 2018-09-10 22:30 | NUR ---
LEVOPHED GTT TURNED OFF AT THIS TIME. B/P 110/62. MAP 90.
[2018-09-10 23:37] VITALS: BP 93/55
[2018-09-11 03:45] VITALS: BP 92/54
--- NOTE | 2018-09-11 04:35 | NUR ---
SUPERVISOR CYTOLOGY AT BEDSIDE FOR BLOOD DRAW.
--- NOTE | 2018-09-11 04:37 | NUR ---
PT HAD EPISODE OF EMESIS, SMALL AMOUNT. GIVEN ZOFRAN 4MG IVP. WILL CONTINUE TO MONITOR.
[2018-09-11 04:52] LABS: BASOPHIL % 0.2 % (0-2); PLATELET COUNT 250 x10^3mcL (130-400); RED CELL DISTRIBUTION WIDTH 13.7 % (11.5-14.5)
[2018-09-11 05:06] LABS: CARBON DIOXIDE 25.6 mmol/L (21-32); PHOSPHOROUS 6.2 mg/dL (2.5-4.9)
--- NOTE | 2018-09-11 05:10 | NUR ---
DR. CARBALLO AT BEDSIDE [facility] PT. UPDATES PROVIDED. MADE AWARE OF LAB VALUES K+ 2.6, AND MAG 1.4.
[2018-09-11 05:12] LABS: CREATININE SERUM 7.1 mg/dL (0.6-1.0); POTASSIUM SERUM 2.6 mmol/L (3.5-5.1)
--- NOTE | 2018-09-11 07:10 | NUR ---
GAVE REPORT TO NEHA HE. ALL QUESTIONS AND CONCERNS ADDRESSED.
--- NOTE | 2018-09-11 07:30 | NUR ---
DR CHANEY IS IN THE ROOM. MD TALK TO THE PATIENT AND . MD UPDATED OF STATUS. NEW ORDERS RECEIVE.
--- NOTE | 2018-09-11 07:35 | NUR ---
GIVEN BREAKFAST TRAY. ASSISTING THE PATIENT IN EATING.
--- NOTE | 2018-09-11 07:50 | NUR ---
PER DR CHANEY, OK TO TRANSFER OUT OF ICU IF ABLE TO REMAIN OF PRESSORS.
[2018-09-11 08:00] VITALS: BP 103/57
--- NOTE | 2018-09-11 08:00 | NUR ---
INITIAL SHIFT ASSESSMENT DONE (SEE ASSESSMENT PART). DROWSY BUT EASILY AROUSABLE. ORIENTED X3. NO C/O PAIN OR DYSPNEA. O2 SAT 97-99% ON ROOM AIR. SR ON MONITOR. SBP IN 90'S-100'S. NO ECTOPY NOTED. HOB ELEVATED. AT BEDSIDE. UPDATED OF STATUS AND PLAN OF CARE. WILL CONTINUE TO MONITOR.
--- NOTE | 2018-09-11 09:23 | NUR ---
DR MATTA AND RESIDENTS AT BEDSIDE FOR ROUNDS. POC DISCUSSED, QUESTIONS AND CONCERNS ADDRESSED. NO NEW ORDERS AT THIS TIME.
--- NOTE | 2018-09-11 09:37 | NUR ---
VOMITTED AT THIS TIME, LARGE AMOUNT AND BROWN COLOR WITH FOOD PARTICLES. GIVEN ZOFRAN 4 MG IVP. GIVEN ALSO BATH. LINENS AND GOWN ARE CHANGE. TOLERATED THE PROCEDURE WELL. WILL CONTINUE TO MONITOR.
--- NOTE | 2018-09-11 10:00 | NUR ---
RESTING IN BED. NO C/O PAIN OR DYSPNEA. O2 SAT 97-98% ON ROOM AIR. SR ON MONITOR. SBP IN 90'S-100'S. NO ECTOPY NOTED. HOB ELEVATED. WILL CONTINUE TO MONITOR.
--- NOTE | 2018-09-11 10:24 | NUR ---
DR PORRAS AT BEDSIDE TO ASSESS PT. UDPATES PROVIDED. PER DR PORRAS OK TO CHANGE DRESSING W/ ABD PADS.
--- NOTE | 2018-09-11 10:51 | NUR ---
REPORT GIVEN TO YING JONES.
--- NOTE | 2018-09-11 11:08 | NUR ---
PPD SKIN TEST WAS ADMINISTERED TO THE L[facility].
[2018-09-11 11:15] VITALS: BP 101/52
--- NOTE | 2018-09-11 11:46 | NUR ---
DR. PARKER, BROKE WORKER IS AT BEDSIDE SEEING THE PATIENT AND WAS UPDATED.
[2018-09-11 13:10] LABS: CARBON DIOXIDE 28.7 mmol/L (21-32); POTASSIUM SERUM 3.2 mmol/L (3.5-5.1)
[2018-09-11 13:17] LABS: CREATININE SERUM 6.5 mg/dL (0.6-1.0)
--- NOTE | 2018-09-11 13:49 | NUR ---
REPORT WAS GIVEN TO YING PIKE FROM [facility]. PATIENT IS TRANSFERRED TO ROOM 257B.
--- NOTE | 2018-09-11 13:59 | NUR ---
TRANSFERRING TO [facility] VIA W/C. ACCOMPANIED BY RN, PT, AND .
--- NOTE | 2018-09-11 14:27 | NUR ---
ASSUMED CARE OF PATIENT. ARRIVED BY WHEELCHAIR WITH RN AT SIDE. APPEARS LETHARGIC AND SEEN SLEEPING ONCE SHE IS PLACED INTO BED. RESPIRATIONS EQUAL AND UNLABORED. QUENTEN CATHETER TO RIGHT PATENT AND INTACT. . ALERT AND ORIENTED X4. ON TELEMONITOR 17 WITH SR, NO COMPLAINTS OF CP OR PRESSURE. PULSES PALPABLE BILATERALLY, NO EDEMA NOTED. LUNG SOUNDS CLEAR TO AUSCULTATION, NO ADVENTITIOUS BREATH SOUNDS NOTED. BOWEL SOUNDS ACTIVE IN ALL 4 QUADRANTS. ONOFRE CATHTER INTACT, DRAINING YELLOW URINE. GENERALIZED WEAKNESS, UNABLE TO AMBULATE INDEPENDENTLY, MAX ASSIST FOR TRANSFERS. ABSCESS ON RIGHT BUTTOCK S/P I&D DRESSING INTACT. NO COMPLAINTS OF PAIN AT THIS TIME. IV ON LAC AND RAC SALINE LOCKED. BED LOCKED AND IN LOWEST POSITION. NONSKID SOCKS IN PLACE. SCD IN PLACE. AT BEDSIDE. WILL CONTINUE TO MONITOR.
--- NOTE | 2018-09-11 15:13 | NUR ---
Initial Nutrition Assessment: IC05 CHARISMA LAUGHLIN IA HR Dx: Acute renal failure, severe metabolic acidosis PMHx: DM, HTN, CKD/ESRD? PSHx: Cholecystectomy, Labs: K 2.6L, BUN 83H, CREAT 7.1H, MG 1.4L, A1C 5.6, WBC 12.3H Meds: Colace, D10%, humulin, morphine, phoslo, Zofran, zosyn Diet: Renal PO Intake: (09/11) breakfast, lunch - 50% each Ht: 157.48cm (62") Wt: 73 kg (160#) BMI: 29.4 kg/m2 Bed scale: 77.9 kg IBW: 110# (50 kg) %IBW: 145 UBW: unable to access Age: 53/F Food Allergies: NKFA Skin: dressing on R buttock surgical incision Luis: 15 Edema: none GI: Last BM: no BM noted Per H&P, Pt is a 53 YOF with PMH of DM, HTN, CKD came to the ED with c/o gradual onset, constant, worsening bilateral flank pain 2 weeks worsened over the past [address] days[address] RDN Visit (09/11): Patient was on room air and sleeping. Per RN, Patient ate little dinner last night but had an episode of vomiting later last night. No family at bedside. Patient had HD yesterday. Paged Dr. Burnett to discuss recommendations, waiting for call back. Problem with: N/V/D/C: vomiting last night Problems with: Chewing/Swallowing: no Current appetite: unable to access, poor per RN Recent wt change: unable to access %wt change: N/A Vitamin/Supplement use: unable to access Special diet at home: unable to access Physical activity: unable to access Nutrition education given: not appropriate at this time as pt was sleeping. Left NCM handout on CKD by bedside. Education will be provided during f/u visit. Food-drug interactions: Colace- high fiber w/3126-9841 ml fluids Education given: no Estimated Nutritional Needs Based on ideal body weight 50 kg Energy: 0112-2083 kcal/d (30-35 kcal/kg) Protein: 60-75 g/d (1.2-1.5 g/kg) - HD Fluid: 7921-8129 ml/d (1 ml/kcal) or per doctor Nutrition Diagnosis 1. Inadequate oral intake related to poor appetite as evidenced by documented PO of 50%. 2. Increased nutrient needs related to increased metabolic demands as evidenced by patient on Hemodialysis. Intervention 1. Recommend Renal diet w/ Nepro BID. Monitor/Evaluate Goal: PO intake at least 75% of estimated needs Monitor: PO intake, Labs, GI function F/U in 2-3 days as high risk 09/13-
--- NOTE | 2018-09-11 15:13 | NUR ---
1. Recommend Renal diet w/ Nepro BID.
--- NOTE | 2018-09-11 17:16 | NUR ---
DRESSING TO RIGHT BUTTOCK CHANGED DUE TO DRAINIAGE. DRAINING SANGUINOUS FLUID. WOUND PHOTO TAKEN.
[2018-09-11 17:37] VITALS: BP 115/63
--- NOTE | 2018-09-11 18:27 | NUR ---
CENTRAL LINE DRESSING CHANGED. FAMILY AT BEDSIDE.
--- NOTE | 2018-09-11 19:30 | NUR ---
RECIEVED PATIENT AT START OF SHIFT A/O X4. FAMILY AT BEDSIDE. ON TELE NUMBER 17, NSR 68 WITH 1ST DEGREE HEART BLOCK. DENIES PAIN. NO SOB ON RA. LUNGS CTAB. ABDOMEN SOFT AND ROUND, BS ACTIVE. PULSES MODERATE, NO EDEMA NOTED. WOUND TO BUTTOX COVERED WITH ABDOMINAL PAD IS SEEPING SANGUINOUS FLUID. PATIENT IS CURRENTLY EATING AND SPENDING TIME WITH FAMILY AND REQUESTED I CHANGE HER DRESSING LATER. VIKI CATH NOTED TO RIGHT NECK, DRESSING CDI. IV TO RAC IS LEAKING AND WAS D/C. IV TO LAC IS INFUSING WITHOUT ERYTHEMA OR INFILTRATION. BED LOCKED AND IN LOWEST POSITION, CALL LIGHT WITHIN REACH.
[2018-09-11 20:29] VITALS: BP 113/62
--- NOTE | 2018-09-11 21:30 | NUR ---
RIGHT BUTTOX WOUND DRESSING REMOVED. WOUND RINSED WITH 250 MLS OF NS AND PADDED DRY. WOUND APPEARS OPEN, COPIOUS AMOUNTS OF SANGUINOUS DRAINAGE AND BLOOD CLOTS REMOVED. OLD ABDOMINAL PAD COMPLETELY SATURATED, WELL THE INCONTINENCE PAD UNDERNEATH. NEW GAUZE AND ABDOMINAL BINDER APPLIED WITH SILK TAPE. NEW INCONTINENCE PAD APPLIED UNDERNEATH WOUND. BLANKETS CHANGED WELL DUE TO SANGUINOUS DRAINAGE.
--- NOTE | 2018-09-11 21:35 | NUR ---
DR. ESCAMILLA PAGED TO INFORM OF WOUND STATUS. WOUND CARE CONSULT ORDERED.
[2018-09-12] VITALS (12 sets, daily range): BP systolic 89–142; BP diastolic 51–97
--- NOTE | 2018-09-12 01:18 | NUR ---
PATIENT'S EYES ARE CLOSED, BREATHS EVEN. AT BEDSIDE. CALL LIGTH WITHIN REACH.
--- NOTE | 2018-09-12 04:19 | NUR ---
PATIENT'S WOUND DRESSING ON HER BUTTOX HAS SOAKED THROUGH AGAIN WITH SANGUINOUS BLOOD, THROUGH THE ABDOMINAL PAD AND SOAKED THE INCONTINENCE PAD UNDERNEATH HER. THERE ARE 2 BASEBALL SIZED CLOTS PRESENT WELL. WOUND WAS CLEANSED AGIAN WITH NS, PADDED DRY WITH GAUZE. DRY GAUZE AND ABDOMINAL PAD PLACED OVER WOUND AND SECURED WITH SILK TAPE. DR. SCHERER WAS INFORMED. NO CHANGE IN ORDERS AT THIS TIME.
--- NOTE | 2018-09-12 06:47 | NUR ---
NO FURTHER SIGNIFICANT EVENTS THIS SHIFT. IV INFUSING TO LAC WITHOUT ERYTHEMA OR INFILTRATION. VIKI CATH DRESSING CDI. MODERATE SANGUINOUS DRAINAGE NOTED TO WOUND DRESSING.ONOFRE CARE PROVIDED. BED LOCKED AND IN LOWEST POSIITON. CALL LIGHT WITHIN REACH. SAFETY AND COMFORT MAINTAINED THROUGHOUT SHIFT. WILL ENDORSE CARE TO DAYSHIFT NURSE.
--- NOTE | 2018-09-12 07:15 | NUR ---
RECEIVED PT FROM ROS RN. PT FOUND RESTING IN BED WITH BOTH EYES CLOSED. EASILY AROUSABLE TO VERBAL STIMULI, FACE SYMMETRICAL, SPEECH CLEAR. NO COMPLAINT OF PAIN. NO SOB ON ROOM AIR. NSR WITH 1ST DEGREE AVB ON TELE 17. NO CHEST PAIN. NO PARKER. NO DIZZINESS AT THIS TIME. IV WNL TO LAC, IV FLUIDS FLOWING. FAMILY MEMBER AT BEDSIDE. SIDE RAILS UP X2. BED IN LOW POSITION. CALL LIGHT WITHIN REACH. FALL PRECAUTIONS IN PLACE. INSTRUCTED TO USE CALL LIGHT TO CALL FOR ASSISTANCE PRN. VERBALIZED UNDERSTANDING. WILL CONTINUE TO MONITOR.
[2018-09-12 07:34] LABS: CALCIUM 7.6 mg/dL (8.5-10.1); CARBON DIOXIDE 29.2 mmol/L (21-32); MAGNESIUM 2.2 mg/dL (1.8-2.4); PHOSPHOROUS 5.2 mg/dL (2.5-4.9); POTASSIUM SERUM 3.2 mmol/L (3.5-5.1)
[2018-09-12 07:40] LABS: BASOPHIL % 0.3 % (0-2); PLATELET COUNT 181 x10^3mcL (130-400)
[2018-09-12 07:42] LABS: RED CELL DISTRIBUTION WIDTH 14.8 % (11.5-14.5)
--- NOTE | 2018-09-12 07:50 | NUR ---
HGB 6.9, HCT 20, PT BLEEDING FROM WOUND TO PERIANAL, MULTIPLE LARGE BLOOD CLOTS NOTED. DR. CARBALLO MADE AWARE. ATTEMPTED TO CONTACT DR. PORRAS SURGEON X2. NO ANSWER AT THIS TIME. COMMERCIAL LEASING AGENT BOB AWARE. PERIANAL CARE PROVIDED, PRESSURE APPLIED TO WOUNDS, PRESSURE DRESSING IN PLACE. PT COMPLAINT OF DIZZINESS. NO SOB ON ROOM AIR. VS STABLE. WILL CONTINUE TO MONITOR CLOSELY.
--- NOTE | 2018-09-12 08:29 | NUR ---
DR. PORRAS AWARE OF BLEEDING. PT NPO FOR POSSIBLE SURGERY. DR. CARBALLO AND DR. LOPEZ SEEING PT AT BEDSIDE.
--- NOTE | 2018-09-12 09:18 | NUR ---
CONSENT FOR BLOOD TRANSFUSION OBTAINED WELL CONSENT FOR SURGERY. DR. PORRAS CAME TO PT BEDSIDE. IV SALINE LOCKED TO LAC, 20 GAUGE. [facility] CATH SITE WNL, NO REDNESS, NO SWELLING, NO INFILTRATION. DRESSING CDI. LOCKED. ONOFRE INTACT DRAINING CLEAR/YELLOW URINE. VS STABLE. PT COMPLAINT OF DIZZINESS. ENDORSED TO AUT[employer] SERVICE DISPATCHERYING CANTOR. PT BEING TAKEN FOR PROCEDURE BY MIREILLE.
--- NOTE | 2018-09-12 11:23 | NUR ---
PT BACK FROM OR, BP 124/69 (89), O2 SAT 100% ON 2LNC, RR EVEN/UNLABORED RR 14, HR 72,TEMP 98.2F, REPORTS MILD PAIN TO DONTE-ANAL WOUND, RATES PAIN 2/10. AA/OX4. DRESSING TO PERIANAL CDI. SCDS IN PLACE. IV WNL TO LAC, IV FLUIDS FLOWING. VIKI CATH WNL TO RIJ. SITE WNL. FAMILY MEMBER AT BEDSIDE. BED IN LOW POSITION. CALL LIGHT WITHIN REACH. WILL CONTINUE TO MONITOR.
[2018-09-12 11:28] LABS: rbc morphology (normal/abnorm) ABNORMAL (NORMAL)
[2018-09-12 11:31] LABS: target cell (codocyte) 1+
--- NOTE | 2018-09-12 12:11 | NUR ---
FRESH FROZEN PLASMA TRANSFUSING AT 60CC/HR. PRE-TRANSFUSION VS STABLE: BP 93/66, HR 82, O2 SAT 100% ON 2LNC, RR 13, TEMP 98.6F. DROWSY BUT EASILY AROUSABLE TO VERBAL STIMULI. AA/OX4. NO S/S OF ACUTE DISTRESS. NO N/V. COMPLAINT OF DIZZINESS/GENERALIZED WEAKNESS. IV WNL TO LAC, NO REDNESS, NO SWELLING, NO INFILTRATION. FFP TRANSFUSING THROUGH LAC. PATENT AND FLUSHES WELL. PT CALM/COOPERATIVE. WILL REMAIN WITH PATIENT.
--- NOTE | 2018-09-12 12:25 | NUR ---
15 MINUTES AFTER STARTING FFP TRANSFUSION: PT AA/OX4. RESTING IN BED WITH BOTH EYES CLOSED, EASILY AROUSABLE TO VERBAL STIMULI, DENIES SOB ON 2LNC. NO CHEST PAIN. PULSES +2 BUE/BLE. NO EDEMA. CAP REFILLS <3 SEC BUE/BLE. NO CHILLS. NO N/V. NO FEVER. NO ITCHINESS/RASH, NO S/S OF REACTION AT THIS TIME. VS STABLE: 98.1F, HR 84, BP 92/56, O2 SAT 100% ON 2LNC. IV WNL TO LAC, NO REDNESS, NO SWELLING, NO INFILTRATION. PATENT AND FLUSHING WELL. PT AND FAMILY EDUCATED ON S/S OF TRANSFUSION REACTION. VERBALIZED UNDERSTANDING TO USE CALL LIGHT TO CALL FOR ASSISTANCE IMMEDIATELY. WILL CONTINUE TO MONITOR.
--- NOTE | 2018-09-12 13:45 | NUR ---
PHYSICAL THERAPY NOTE ATTEMPTED FOR PHYSICAL THERAPY FOLLOW UP SESSIONS. PATIENT IS TAKEN FOR SURGICAL INTERVENTION PER CHANTAL HE. DISCHARGED FROM PHYSICAL THERAPY 2/2 CHANGE OF CONDITION. NECESSITATE MD ORDER TO RE-EVALUATE.
--- NOTE | 2018-09-12 13:45 | NUR ---
DRESSING TO PERIANAL WOUND CDI.
--- NOTE | 2018-09-12 13:53 | NUR ---
FRESH FROZEN PLASMA TRANFUSION COMPLETE. VS STABEL: BP 94/54, HR 80, RR 12, O2 SAT 100% ON 2LNC. TEMPT 97.8F. NO COMPLAINT OF PAIN. NO SOB ON 2LNC. NO CHEST PAIN. PULSES +2 BUE/BLE. NO EDEMA. CAP REFILLS <3 SEC BUE/BLE. ONOFRE INTACT DRAINING CLEAR/YELLOW URINE. NO N/V. NO CHILLS. NO FEVER NOTED. IV WNL TO LAC, NO REDNESS, NO SWELLING, NO INFILTRATION. PATENT AND FLUSHES WELL. CALM/COOPERATIVE. BED IN LOW POSITION. CALL LIGHT WITHIN REACH. WILL CONTINUE TO MONITOR.
--- NOTE | 2018-09-12 14:10 | NUR ---
WOUND CARE NOTE: WOUND CARE CONSULT PENDING, DISCUSSION WITH CHARGE NURSE, PT HAD 2ND I&D THIS MORNING AND PT. IS RECEVING BLOOD TRANSFUSION AT THIS TIME.
--- NOTE | 2018-09-12 14:15 | NUR ---
BLOOD TRANFUSION STARTED AT 60CC/HR. PRE-TRANSFUSION VS STABLE: TEMP 98.2F, HR 76, BP 105/67, RR 11, O2 SAT 1005 ON 2LNC. PT RESTING IN BED WITH BOTH EYES CLOSED. DROWSY BUT AROUSABLE. NO CHEST PAIN. NO SOB ON 2LNC. LUNG SOUNDS CTA BILATERALLY. RR EVEN/UNLABORED. CHEST EXPANSION SYMMETRICAL. ONOFRE IN TACT DRAINING CLEAR/YELLOW URINE. IV WNL TO LAC, PATENT AND FLUSHES WELL. RIJ VIKI CATH PATENT WITH BLOOD RETURN TO PORT. FLUSHES WELL. SITE WNL, NO REDNESS, NO SWELLING, NO INFILTRATION. NO N/V. NO CHILLS. CALM/COOPERATIVE. BED IN LOW POSITION. CALL LIGHT WITHIN REACH. WILL REMAIN WITH PATIENT.
--- NOTE | 2018-09-12 14:30 | NUR ---
BLOOD TRANSFUSION 15 MINUTES AFTER STARTING VS STABLE. NO S/S OF ACUTE DISTRESS. NO SOB ON 2LNC, O2 SAT 100%, RR EVEN/UNLABORED. PT RESTING IN BED WITH BOTH EYES CLOSED. EASILY AROUSABLE. NO CHEST PAIN. RIJ VIKI CATH IN TACT, PATENT AND FLUSHES WELL WITH GOOD BLOOD RETURN TO PORT. SITE WNL. IV WNL TO LAC, SALINE LOCKED. NO N/V. NO CHILLS. NO FEVER. AT BEDSIDE. ONOFRE IN TACT DRAINING CLEAR/YELLOW URINE. LUNG SOUNDS CONTINUE TO REMAIN CLEAR BILATERALLY. WILL CONTINUE TO MONITOR CLOSELY.
[2018-09-12 14:33] LABS: BASOPHIL % 0.2 % (0-2); PLATELET COUNT 135 x10^3mcL (130-400)
[2018-09-12 14:41] LABS: RED CELL DISTRIBUTION WIDTH 15.1 % (11.5-14.5)
--- NOTE | 2018-09-12 14:45 | NUR ---
HGB 5.[address] CARBALLO AWARE. 1 UNIT PRBC RUNNING AT THIS TIME. NO S/S OF ACUTE DISTRESS. WILL CONTINUE TO MONITOR CLOSELY.
[2018-09-12 14:58] LABS: rbc morphology (normal/abnorm) ABNORMAL (NORMAL)
[2018-09-12 15:02] LABS: tear drop cell (dacryocyte) 1+
[2018-09-12 15:04] LABS: ovalocyte/elliptocyte 1+
--- NOTE | 2018-09-12 16:26 | NUR ---
1 UNIT PRBC BLOOD TRANSFUSION COMPLETED. VS STABLE: BP 100/53, HR 74, O2 SAT 99% ON 2LNC, RR 12, TEMP 97.6F. DENIES SOB. NO CHEST PAIN. NO FEVER. NO CHILLS. NO N/V. NO RASHES. ONOFRE IN TACT DRAINING CLEAR/YELLOW URINE. PULSES +2 BUE/BLE. LUNG SOUNDS CTA BILATERALLY. NO EDEMA NOTED. CALM/COOPERATIVE. IV WNL TO LAC, SALINE LOCKED. [facility] CATH WNL WITH GOOD BLOOD RETURN. SITE WNL. FLUSHES WELL. BED IN LOW POSITION. CALL LIGHT WITHIN REACH. WILL CONTINUE TO MONITOR.
--- NOTE | 2018-09-12 16:55 | NUR ---
PRE-BLOOD TRANSFUSION VS STABLE: BP 103/51, HR 74, RR 13, O2 SAT 100% ON 2LNC, TEMP 98.4F, AA/OX4. DROWSY BUT EASILY AROUSABLE TO VERBAL STIMULI. NO S/S OF ACUTE DISTRESS. LUNG SOUNDS CTA BILATERALLY. RR EVEN/UNLABORED. PULSES +2 BUE/BLE. CAP REFILLS <3 SEC BUE/BLE. ONOFRE IN TACT DRAINING CLEAR/YELLOW URINE. IV WNL TO LAC, SALINE LOCKED. RIJ VIKI CATHETER WNL. NO REDNESS, NO SWELLING, NO INFILTRATION. PATENT WITH BLOOD RETURN. FLUSHES WELL. NO N/V. NO CHILLS. NO FEVER. BP TRENDS LOW, LASIX HELD AT THIS TIME. TYLENOL AND BENADRYL GIVEN PER PHYSICIAN ORDER. WILL REMAIN WITH PATIENT AND CONTINUE TO MONITOR CLOSELY.
--- NOTE | 2018-09-12 17:15 | NUR ---
15 MINUTES AFTER BEGINNING 1 UNIT PRBC VS: BP 92/68, HR 71, O2 SAT 100%, RR 13, TEMP 98.0F. NO S/S OF ADVERSE REACTION AT THIS TIME. NO SOB ON 2LNC. NO CHILLS/N/V/RASH. NO COMPLAINT OF PAIN. RIJ WNL. LUNG SOUNDS CTA BILATERALLY ON ROOM AIR. RR EVEN/UNLABORED. CALM/COOPERATIVE. REPORTS FEELING MILD IMPROVEMENT AFTER PREVIOUS 1 UNIT PRBC. BED IN LOW POSITION. CALL LIGHT WITHIN REACH. WILL CONTINUE TO MONITOR.
--- NOTE | 2018-09-12 18:18 | NUR ---
PT LAYING IN BED. AA/OX4. FOLLOWS COMPLEX COMMANDS, RESPONDS TO VERBAL STIMULI, FACE SYMMETRICAL, SPEECH CLEAR. NO N/V. NO CHILLS. PRBC BLOOD TRANFUSION RUNNING. RIJ WNL, NO REDNESS, NO SWELLING, NO INFILTRATION. PATENT AND FLUSHES WELL. IV TO LAC WNL. SALINE LOCKED. NO SOB ON ROOM AIR, O2 SAT 97%. ONOFRE IN TACT DRAINING CLEAR/YELLOW URINE. BED IN LOW POSITION. CALL LIGHT WITHIN REACH. WILL ENDORSE TO ONCOMING SHIFT.
--- NOTE | 2018-09-12 18:30 | NUR ---
DRESSING TO PERIANAL CDI, PT REPOSITIONS INDEPENDENTLY. WILL ENDORSE TO ONCOMING SHIFT.
--- NOTE | 2018-09-12 20:00 | NUR ---
PATIENT COMPLETED 2ND UNIT OF PRBC. POST TRANSFUSION VITAL SIGNS FOLLOWS BP 89/64, HR 68, RR 20, TEMP 97.9 NO TRANSFUSION REACTION NOTED. WILL CONTINUE TO MONITOR.
[2018-09-12 22:06] LABS: BASOPHIL % 0.3 % (0-2); PLATELET COUNT 134 x10^3mcL (130-400)
[2018-09-12 22:07] LABS: RED CELL DISTRIBUTION WIDTH 14.9 % (11.5-14.5)
--- NOTE | 2018-09-12 22:26 | NUR ---
PATIENT RECEIVED RESTING IN BED, RESPIRATION EVEN AND UNLABORED. ONGOING 1/2 NS WITH [id number] AT 50 ML/HR. LEFT ANTECUBITAL AREA PATENT AND INTACT. RIGHT VIKI CATHETER INTACT. NO GI COMPLAINTS NOTED, LBM 09/10/18. ONOFRE CATHETER TO GRAVITY DRAINING YELLOW COLORED URINE. GENERALIZED WEAKNESS TO EXTREMITIES. PERIANAL WOUND WITH PINROSE DRAIN COVERED WITH DRY AND INTACT DRESSING. DENIES PAIN AT THIS TIME. ON TELE #17. WILL CONTINUE TO MONITOR.
[2018-09-13] VITALS (9 sets, daily range): BP systolic 110–143; BP diastolic 63–93
--- NOTE | 2018-09-13 06:42 | NUR ---
PATIENT RESTING IN BED. RESPIRATION EVEN AND UNLABORED, ON ROOM AIR. IV SITE NO SIGN OF INFILTRATION. PERIANAL WOUND NO SIGN OF BLEEDING. SAFETY OBSERVED. PLACED BED IN THE LOWEST POSITION. PLACED CALL LIGHT WITHIN REACH AT ALL TIMES.
--- NOTE | 2018-09-13 07:30 | NUR ---
ONOFRE INTACT AND DRAINING WELL. YELLOW UNRINE NOTED. OUTPUT PER NIGHT RN 200ML/HR. WILL CONTINUE TO MONITOR.
--- NOTE | 2018-09-13 07:30 | NUR ---
PT ENDORSE TO ME THIS MORNING. SITTING UP IN BED RESTING/ JUST WALKED BACK FROM BATHROOM. AA/O X4. BREATHING EVEN AND UNLABORED ON RA, NO ACUTE RESP DISTRESS OR SOB NOTED. TELE 24 SR NOTED HR 84, DENIES ANY CP OR PRESSURE. LAST BM 09/12 FORMED. VOIDS FREELY. IV TO THE L HAND INTACT AND PATENT INFUSING AT 100ML/HR, NO REDNESS OR SWELLING NOTED. WILL CONTINUE TO MONITOR.
--- NOTE | 2018-09-13 07:30 | NUR ---
PT ENDORSE TO ME THIS MORNING. PT LAYING IN BED RESTING WITH BOTH EYES OPEN, AA/O X4, EASILY AROUSABLE TO VERVAL STIMULI, FACE SYMMETRICAL, SPEECH CLEAR. BREATHING EVEN AND UNLABORED ON RA, NO ACUTE RESP DISTRESS OR SOB NOTED. NSR WIHT 1ST DEG AVD ON TELE 17, DENIES ANY CP OR PRESSURE. BOWEL SOUNDS ACTIVE IN ALL FOUR QUADS, VOIDS FREELY. IV TO THE LAC INTACT AND PATENT. RIJ QUINTION CATH / OK TO USE. AT BEDSIDE. CALL LIGHT IN REACH. BED IN LOW POSITION. SIDE RAILS X2 UP. WILL CONTINUE TO MONITOR.
[2018-09-13 07:42] LABS: CALCIUM 6.6 mg/dL (8.5-10.1); CARBON DIOXIDE 32.4 mmol/L (21-32); MAGNESIUM 1.8 mg/dL (1.8-2.4); PHOSPHOROUS 5.4 mg/dL (2.5-4.9); POTASSIUM SERUM 3.5 mmol/L (3.5-5.1)
[2018-09-13 07:45] LABS: CREATININE SERUM 7.2 mg/dL (0.6-1.0)
--- NOTE | 2018-09-13 08:30 | NUR ---
TELE CALLED PT HAVING RAPID AFIB HR 107-120S, 118/76 MAP 97, 96 RA, RESP 18 DENIES ANY CP OR PRESSURE. DR. CARBALLO MADE AWARE. AT BEDSIDE. WILL CONTINUE TO MONITOR.
--- NOTE | 2018-09-13 10:06 | NUR ---
PER DR. MATTA ORDERS IVP METOPROLOL 5ML OVER 2MIN DUE TO NEW ONSET OF A-FIB. TELE STRIP DONE BEFORE AND AFTER. VS: 131/77, HR 118- 120S, RESP 17, PT DENIES ANY CP OR PRESSURE/ WILL CONTINUE TO MONITOR.
--- NOTE | 2018-09-13 11:15 | NUR ---
ARSENIO VS: 126/[address] ARIAS MADE AWARE.
--- NOTE | 2018-09-13 12:00 | NUR ---
REMAINS ON AFIB WITH HR 126-130BPM. PT ASYMPTOMATIC. METOPROLOL IVP GIVEN PER ORDER. VS WNL.
--- NOTE | 2018-09-13 12:36 | NUR ---
PT HAD ONE BM, AREA CLEANED, DRSG TO PERIANAL CHANGED, CDI/ PT TOLERATED WELL. WILL CONTINUE TO MONITOR.
--- NOTE | 2018-09-13 13:04 | NUR ---
ARSENIO BP 139/96 HR 130 STILL A-FIB / PT DENIES ANY CP OR PRESSSURE AT THIS TIME. DR. ARIAS MADE AWARE.
--- NOTE | 2018-09-13 14:50 | NUR ---
PT TRANSFERED TO ICU FOR AMIODARONE DRIP FOR NEW ONSET OF A-FIB, WILL CONTINUE CARE.
[2018-09-13 14:57] LABS: BASOPHIL % 0.1 % (0-2); PLATELET COUNT 141 x10^3mcL (130-400)
[2018-09-13 14:58] LABS: RED CELL DISTRIBUTION WIDTH 15.6 % (11.5-14.5)
--- NOTE | 2018-09-13 16:00 | NUR ---
PT CONVERTED BETWEEN [phone] FROM A-FIB TO SR, HR IS RANGING FROM 60-63. DR. HUGO LAU.
--- NOTE | 2018-09-13 16:00 | NUR ---
AMIODARONE DRIP STARTED AT 1600 AT 1MG/MIN TOLERATING WELL. WILL CONTINUE TO MONITOR.
--- NOTE | 2018-09-13 17:11 | NUR ---
PER DR. ARIAS WILL CONTINUE 1MG/MIN OF AMIODARONE DRIP PER PROTOCAL, IF PATIENT BECOMES HYPOTENSIVE SYYTOLIC UNDER [address] HEBER HAINES TO MONITOR.
--- NOTE | 2018-09-13 18:00 | NUR ---
PT TOLERATED 40% OF DINNER, ACCU CK 152 HELD REG INSULIN. PT REFUSE. DR. HUGO LAU.
--- NOTE | 2018-09-13 19:11 | NUR ---
RECEIVED REPORT FROM MAX HE. ASSUMING ALL CARE
--- NOTE | 2018-09-13 19:11 | NUR ---
NO ACUTE CHANGES AT THIS TIME. NO ACUTE RESP DISTRESS OR SOB NOTED. HD RN AT BEDSIDE TO START HD. PT REMAINS ON 1MG/MIN OF AMIODARONE IV DRIP, TOLERATING WELL. DR GALLARDO WAS AT BEDSIDE GOING OVER PT PLAN. DENIES ANY CP OR PRESSURE, CARE ENDORSE TO YING HENLEY.
--- NOTE | 2018-09-13 19:25 | NUR ---
HD INITIATED AT THIS TIME
--- NOTE | 2018-09-13 19:30 | NUR ---
RECEIVED PT LAYING IN BED. PT IS A/OX4. SPEECH IS CLEAR. ABLE TO MAKE NEEDS KNOWN. GCS=15. DENIES PARKER. EENT FREE OF DISCHARGE. ORAL MUCOSA PINK AND MOIST. NO JVD NOTED. BREATHING IS E/U ON RA. LUNGS SOUND CLEAR BILAT. SYMMETRICAL CHEST EXPANSION NOTED. S1/S2 HEART SOUNDS AUSCULTATED. CHEST WALL EQUAL AND SYMMETRICAL. DENIES ANY DIZZINESS/CP. PT ON AMIODARONE GTT @ 1 MG/MIN. HR 69, BP 143/75 MAP 97. PALPABLE PULSES X4 EXTREMITIES. SKIN IS WARM AND DRY. NO EDEMA NOTED. CAP REFILL < 3 SECS. LH IV IN PLACE. 1/2 NS WITH 1 AMP OF SODIUM BICARB INFUSING @ 50 ML/HR. GENERALIZED WEAKNESS. NO JOINT SWELLING/DEFORMITY NOTED. PT ABLE TO REPOSITION SELF INDEPENDENTLY. PT IS ON RENAL DIET. NO N/V NOTED. ABD IS SOFT, ROUND, NONTENDER TO PALPATION. BOWEL SOUNDS ACITVE X4 QUADRANTS. NO BM NOTED. ONOFRE IS INTACT/SECURED, DRAINING VIA GRAVITY WITH YELLOW COLORED URINE. NO LABIAL EDEMA NOTED. RIGrey DREW IN PLACE. PT RECEIVING HD AT THIS TIME. OPEN WOUND NOTED TO PERIANAL WITH PINROSE DRAIN IN PLACE, DRESSING CDI. PT ABLE TO REPOSITION SELF INDEPENDENTLY. PT IS CALM AND COOPERATIVE. FAMILY AT BEDSIDE. BED IN LOW POSITION. CALL LIGHT IN REACH. WILL CONT TO MONITOR
--- NOTE | 2018-09-13 22:00 | NUR ---
AMIODARONE GTT TITRATED TO 0.5 MG/MIN PER PROTOCOL
--- NOTE | 2018-09-13 22:18 | NUR ---
HD COMPLETED AT THIS TIME. 1 LITER WAS REMOVED. VSS. WILL CONT TO MONITOR
--- NOTE | 2018-09-13 22:45 | NUR ---
PT HAD A LOOSE BROWN BM, PERICARE PROVIDED
--- NOTE | 2018-09-13 23:20 | NUR ---
DR. MARTINEZ AT BEDSIDE. UPDATED ON PT'S STATUS. NO NEW ORDERS
--- NOTE | 2018-09-14 02:15 | NUR ---
PT IS SLEEPING, EASILY AROUSABLE. BREATHING IS E/U ON RA. RISE AND FALL OF CHEST NOTED. NO S/S OF ACUTE DISTRESS. AMIODARONE GTT INFUSING @ 0.5 MG/MIN AND 1/2 NS WITH 1 AMP OF BICARB @ 50 ML/HR WITH NO S/S OF INFILTRATION NOTED. FAMILY AT BEDSIDE. BED IN LOW POSITION. CALL LIGHT IN REACH. WILL CONT TO MONITOR
[2018-09-14 03:18] VITALS: BP 122/73
--- NOTE | 2018-09-14 05:15 | NUR ---
STERILE INSTRUMENT TECHNICIAN AT BEDSIDE FOR AM LAB DRAW
[2018-09-14 05:31] LABS: BASOPHIL % 0.2 % (0-2); PLATELET COUNT 146 x10^3mcL (130-400)
[2018-09-14 05:33] LABS: RED CELL DISTRIBUTION WIDTH 14.9 % (11.5-14.5)
[2018-09-14 05:53] LABS: CALCIUM 7.3 mg/dL (8.5-10.1); CARBON DIOXIDE 34.2 mmol/L (21-32); MAGNESIUM 1.6 mg/dL (1.8-2.4); PHOSPHOROUS 3.3 mg/dL (2.5-4.9); POTASSIUM SERUM 3.4 mmol/L (3.5-5.1)
--- NOTE | 2018-09-14 06:10 | NUR ---
FULL BED BATH PROVIDED. GOWN AND LINENS CHANGED. DRESSING CHANGED TO PERIRECTAL WOUND. BED IN LOW POSITION. CALL LIGHT IN REACH. WILL CONT TO MONITOR.
--- NOTE | 2018-09-14 07:10 | NUR ---
REPORT GIVEN TO ALBERTO HE FOR CONTINUITY OF CARE. ALL QUESTIONS/CONCERNS ADDRESSED AT THIS TIME. ENDORSING ALL CARE
[2018-09-14 08:00] VITALS: BP 132/77
--- NOTE | 2018-09-14 08:00 | NUR ---
AWAKE,ALERT AND ORIENTED,S/P I&D 09/10 PERIANAL SURGICAL INCISSION SITE INTACT W/ MYRA DRAIN W/ DRESSING CDI,NO NEW DRAINAGE ,NO BLEEDING NOTED.DENIES PAIN AT THIS TIME.ONOFRE CATH .PATENT DRAINING YELLOW COLOR URINE,ABLE TO TURN SELF W/ ASSIST. HAD 1 BM LOOSE BROWN STOOL MOD. AMT.ENCOURAGE TO REPOSITION Q 2 HRS FOR COMFORT, CONT. IV FLUIDS ORDERED.NO ACUTE RESP. DISTRESS NOTED. WILL [facility] CATH. INPLACE FOR HEMODIALYSIS 3 X PER WEEK.LAST HEMODIALYSIS 09/13 W/ OUTPUT 1 L.WILL CONT. PLAN OD CARE.
--- NOTE | 2018-09-14 11:28 | NUR ---
Follow-up Nutrition Assessment- Dx: acute renal failure, severe metabolic acidosis Labs: (09/14) Na 144, K 3.4, Glu 102, BUN 26 H, Cr 4.0 H, A1c 5.6, H/H 7.7/22. Meds: Colace, D10%, Humulin R, Lasix, KCl, Lasix, Lopressor, Mag-ox, Magnesium sulfate, Morphine sulfate, Julian, Sodium bicarbonate, Tylenol Diet: Renal PO Intakes: (09/13) 60%, (09/12) 30%, 35%; overall average = 52% x 3 meals. This provides ~880 kcal and ~40 gm protein to meet 58% est kcal and 67% est protein needs; inadequate kcal and protein. Pt receives Nepro 8-oz BID to help meet needs. Weights: (09/11) 71 kg, (09/14) 75 kg; wt changes may be d/t fluid shifts 2/2 ESRD on HD. Skin: dressing on rt buttock surgical incision Luis: 15 Edema: none Last BM: 09/14/18 x 1 Per physician progress note, Pt noted as POD #2 - control of arterial bleed from I&D site, Pt has second session of HD on 09/13 with 1 L of fluid removal, likely to have next HD on Saturday (09/15). I/O note: [id number] (+[id number]). Pt moved from tele to ICU on 09/13 d/t new onset a-fib. Outpatient HD being arranged with Dr. Shultz. RDN spoke with RN, who reports Pt had diarrhea this morning, otherwise no other GI s/s. Pt ate 40% of dinner last night, 50% of breakfast this morning. Pt drinks about 25% of Nepro carton. Estimated Nutritional Needs unchanged from prior assessment: Energy: 9205-9649 kcal/d (30-35 kcal/kg) Protein: 60-75 gm/d (1.2-1.5 gm/kg) - HD Fluid: 0953-9330 mL/d (1 mL/kcal) or per doctor d/t HD Nutrition Diagnosis 1. Inadequate oral intake related to poor appetite as evidenced by overall average PO intakes of 52%. (Modified) 2. Increased nutrient needs related to increased metabolic demands as evidenced by patient on HD. (Ongoing) Intervention/RDN Recommendation(s): 1. Continue on renal diet as tolerated. 2. Continue on Nepro 8-oz BID as tolerated. This provides additional 850 kcal and 38 gm protein to help meet estimated needs. Monitor/Evaluate Goal: Intake via PO intakes to meet at least 75% of estimated needs with acceptable tolerance within 3-5 days. Monitor: PO intakes and/or nutrition support tolerance, Labs, GI function, Skin integrity, Weights. F/U in 3-5 days as moderate risk (09/17-)
[2018-09-14 12:00] VITALS: BP 116/68
--- NOTE | 2018-09-14 12:00 | NUR ---
AWAKE,ALERT AND ORIENTED. DONTE-ANAL SURGICAL INCISSION INTACT W/ DRESSING .ABLE TO TURN W/ ASSIST. DENIES ANY PAIN AT THIS TIME.ATE FAIRLY 50% FOR LUNCH.ONOFRE CATH. PATENT DRAINING YELLOW COLOR URINE .CONT. IV FLUIDS AND IV ANTIBIOTIC ORDERED.NO ACUTE RESP. DISTRESS NOTED.WILL CONT TO MONITOR PT. CALL LIGHT W/ IN REACH.
[2018-09-14 16:00] VITALS: BP 118/79
--- NOTE | 2018-09-14 16:00 | NUR ---
AWAKE,ALERT AND ORIENTED DENIES ANY PAIN THE WHOLE DAY,HAD ANOTHER BM SMALL AMT. SOFT LOOSE STOOLS,KEEP CLEAN AND DRY, DRESSING CHANGED TO PERIANAL SURGICAL INCISION AREA MYRA DRAIN INTACT.DENIES ANY PAIN ABLE TO TURN SELF.ONOFRE CATH. PATENT AND DRAINING YELLOW COLOR URINE W/ GOOD OUTPUT ENCOURAGE TO TURN Q 2 HRS PREVENTION OF PNEUMONIA.CALL LIGHT W/ IN REACH ,NO ACUTE DISTRESS NOTED.
[2018-09-14 19:15] VITALS: BP 113/62
--- NOTE | 2018-09-14 19:15 | NUR ---
RECEIVED REPORT FROM YING MIRANDA. SEE NURSING ASSESSMENT FOR MORE DETAILS. RECEIVED PT A/O4, NO DISTRESS, DENIES SOB, ON ROOM AIR. ON FULL FLAT CLOTHIER, NORMAL SINUS NOTED ON MONITOR. CONTINUOUS PULSE OXIMETRY. HOB ELEVATED 30 DEGREES, BED AT LOWEST SETTING, CALL LIGHT WITHIN REACH, SIDE RAILS UP X4 PER PT REQUEST. F/C DRAINING TO GRAVITY PALE YELLOW URINE, INTACT AND SECURED. WOUND TO PERIANAL AREA HAS MINIMAL BLOODY DRAINAGE WITH DRESSING AND MYRA DRAIN INTACT. TEACHING PROVIDED TO PT AND SPOUSE. WILL CONT TO MONITOR.
--- NOTE | 2018-09-14 21:30 | NUR ---
REPORT WAS GIVEN TO YING VALENZUELA FOR CONTINUITY OF CARE. WILL TRANSFER PT UP WHEN BED AVAILABLE.
--- NOTE | 2018-09-14 22:45 | NUR ---
PT TRANSFERRED TO [facility] B VIA WHEELCHAIR, PT ATTACHED TO IT PROGRAM ENGAGEMENT DIRECTOR, NO COMPLICATIONS, PT IN NO ACUTE DISTRESS OR SOB. ENDORSED CARE TO YING VALENZUELA AT BEDSIDE.
--- NOTE | 2018-09-14 22:55 | NUR ---
RECEIVED PT FROM ICU. PT A/OX4. AMBULATED WITH STEADY GAIT TO BED. DENIES SOB ON RA. IV PATENT AND INFUSING WELL WITH NO S/S OF INFILTRATION. F/C DRAINING TO GRAVITY WITH YELLOW OUTPUT. NSR ON TELE# 6. AT BEDSIDE. WOUND TO PERIRECTAL ABSCESS WITH PACKING AND MYRA DRAIN. DRESSING CHANGED. PT DENIES PAIN. CALL LIGHT WITHIN REACH, BED IN LOW POSITION. WILL CONTINUE TO MONITOR.
[2018-09-14 23:17] VITALS: BP 117/76
[2018-09-15] VITALS (8 sets, daily range): BP systolic 116–125; BP diastolic 62–78
--- NOTE | 2018-09-15 01:55 | NUR ---
PT RESTING IN NO ACUTE DISTRESS. RR EVEN AND UNLABORED. CALL LIGHT WITHIN REACH, BED IN LOW POSITION. WILL CONTINUE TO MONITOR.
--- NOTE | 2018-09-15 07:32 | NUR ---
AT 0710 - RECEIVED PATIENT FROM NIGHT NURSE. AWAKE, ALERT AND ORIENTED. MONITOR SHOWING SINUS RHYHTM; RATE 70'S. IV INFUSING D5 WITH 50 MEQ SODIUM BICARB AT 50 ML/HR.
[2018-09-15 07:51] LABS: BASOPHIL % 0.1 % (0-2); PLATELET COUNT 178 x10^3mcL (130-400)
[2018-09-15 07:52] LABS: RED CELL DISTRIBUTION WIDTH 14.9 % (11.5-14.5)
--- NOTE | 2018-09-15 08:03 | NUR ---
DIALYSIS NURSE AT BEDSIDE, PREPARING FOR HD. PATIENT HAD BM. PERIANAL WOUND CLEANSED AND REDRESSED.
[2018-09-15 08:34] LABS: CALCIUM 7.4 mg/dL (8.5-10.1); CARBON DIOXIDE 27.3 mmol/L (21-32); MAGNESIUM 1.7 mg/dL (1.8-2.4); PHOSPHOROUS 3.4 mg/dL (2.5-4.9); POTASSIUM SERUM 3.4 mmol/L (3.5-5.1)
[2018-09-15 08:38] LABS: CREATININE SERUM 5.3 mg/dL (0.6-1.0)
--- NOTE | 2018-09-15 08:48 | NUR ---
SEEN BY DR MATTA DURING MORNING ROUNDS. PLAN TO DC HOME - POSSIBLY TODAY AFTER ARRANGEMENTS ARE MADE FOR WOUND CARE DRESSING CHANGES AT HOME AND DIALYSIS. DIALYSIS IN PROGRESS. RECEIVED CALL FROM [facility] WITH CR OF 5.3. PRINT-OUT OF LATEST LABS GIVEN TO DIALYSIS NURSE.
--- NOTE | 2018-09-15 10:41 | NUR ---
SEEN BY DR PORRAS. RECEIVED ORDERS TO REMOVE WOUND PACKING. MYRA DRAIN TO STAY IN. DIALYSIS STIL IN PROGRESS.
--- NOTE | 2018-09-15 12:23 | NUR ---
AT 1100 - HEMODIALYSIS COMPLETED. TOTAL OF 2000 ML REMOVED. VSS.
--- NOTE | 2018-09-15 17:44 | NUR ---
AT 1400 - SEEN BY DR PARKER. NEW ORDERS RECEIVED. PATIENT TO RECEIVE 1 UNIT BLOOD. IV INFUSION OF SODIUM BICARB DISCONTINUED. AT 1430 - PATIENT AMBULATED TO BATHROOM FOR BM. PERIANAL AREA WASHED AND NEW DRESSING APPLIED TO WOUND. SURGISEAL PACKING HAD BEEN REMOVED EARLIER. COMMENCED BLADDER TRAINING WITH PLAN TO REMOVE ONOFRE CATHETER IN AM. AT 1630 - ONOFRE CATHETER CLAMP RELEASED. PATIENT AMBULATED TO BATHROOM AGAIN. HAS HAD ANOTHER BM.RETURNED TO BED, PERIANAL AREA CLEANSED WITH NS AND DRY DRESSING APPLIED. AT 1741 - BLOOD TRANSFUSION OF 1 UNIT PRBC COMMENCED.
--- NOTE | 2018-09-15 19:05 | NUR ---
AWAKE, ALERT AND OREITNED. DENIES ANY PAIN. BLOOD TRANSFUSION IN PROGRESS. NO UNTOWARD EFFECTS NOTED. VSS. AFEBRILE. HAS HAD FREQUENT BM THIS AFTERNOON. OBTAINED ORDER FOR LACTINEX AND ADMINISTERED PER EMAR. PATIENT ALSO HAS SEROSANGUINOUS DISCHARGE FROM PERIANAL WOUND. FREQUENT DRESSING CHANGES. AMBULATES TO BATHROOM FOR TOILET NEEDS. WILL ENDORSE CARE TO NIGHT NURSE.
--- NOTE | 2018-09-15 19:48 | NUR ---
PT WITH ONOFRE CATH DRAINING TO GRAVITY WITH YELLOW URINE. ONOFRE CATH CLAMPED FOR BLADDER TRAINING. PT TOLERATED IT WELL. WILL CONTINUE TO MONITOR.
--- NOTE | 2018-09-15 20:00 | NUR ---
PT A/A/O X4, FAMILY AT BEDSIDE. PT DENIES DIZZINESS AND HEADACHE. BREATH SOUNDS CLEAR. BREATHING EVEN AND UNLABORED ON ROOM AIR. DENIES CHEST PAIN AND PRESSURE. BOWEL SOUNDS ACTIVE. NO C/O N/V AND ABD PAIN. C/O LOOSE STOOLS. WOUND WITH DRESSING ON THE BUTTOCKS NOTED C/D/I. PT DENIES PAIN THUS FAR. VIKI CATH NOTED ON THE RIGHT CHEST WITH PIGTAIL INFUSING WITH BLOOD TRANSFUSION. NO ADVERSE REACTION NOTED. IV SALINE LOCK NOTED ON THE RIGHT FOREARM. MADE PT COMFORTABLE. PLACED CALL LIGHT WITH IN REACH. WILL CONTINUE TO MONITOR.
--- NOTE | 2018-09-15 21:00 | NUR ---
PT FINISHED BLOOD TRANSFUSION. PT TOLERATED IT WELL. NO ADVERSE REACTION NOTED. VITAL SIGNS STABLE. MADE PT COMFORTABLE. WILL CONTINUE TO MONITOR.
--- NOTE | 2018-09-15 22:01 | NUR ---
PT FEELS PRESSURE AND URGE TO URINATE. ONOFRE CATH UNCLAMPED. WILL CONTINUE TO MONITOR.
--- NOTE | 2018-09-16 00:54 | NUR ---
PT ONOFRE CATH CLAMPED. PT RESTING WITH EYES CLOSED. NO DISTRESS AND DISCOMFORT NOTED. WILL CONTINUE TO MONITOR.
[2018-09-16 06:26] VITALS: BP 118/75
[2018-09-16 06:40] LABS: PLATELET COUNT 199 x10^3mcL (130-400)
--- NOTE | 2018-09-16 06:40 | NUR ---
PT QUIET AND RESTING. DRESSING CHANGED ON THE BUTTOCKS. OLD DRESSING WITH MODERATE AMOUNT OF SANGUINEOUS COLORED FLUID NOTED. PEN ABNER DRAIN IN PLACE. ONOFRE CATH TAKEN OF. PT TOLERATED IT WELL. MADE PT COMFORTABLE. WILL ENDORSE TO THE AM NURSE ACCORDINGLY.
[2018-09-16 06:48] LABS: RED CELL DISTRIBUTION WIDTH 16.5 % (11.5-14.5)
[2018-09-16 06:54] LABS: CALCIUM 7.5 mg/dL (8.5-10.1); CARBON DIOXIDE 26.6 mmol/L (21-32); MAGNESIUM 1.4 mg/dL (1.8-2.4); PHOSPHOROUS 2.5 mg/dL (2.5-4.9); POTASSIUM SERUM 3.3 mmol/L (3.5-5.1)
--- NOTE | 2018-09-16 07:15 | NUR ---
RECEIVED PT IN BED, AXOX4, VERBAL, SWISS, CALM AND COPPERATIVE, IN NO ACUTE DISTRESS, DENIED PAIN/CP/PRESSURE, DENIED N/V/DIZZINESS, RENAL DIET, PERRLA, NO REDNESS/DRAINAGE, LUNGS CTA, CHEST RISE SYMMETRICALLY, TELE #6, NSR, HR-76 AT THIS TIME, ABD ROUND AND NON-TENDER TO TOUCH, ABLE TO MOVE ALL EXTREMITIES, PALP PULSES, CAP REFILL < 2 SECS, SKIN D/W/C, MYRA DRAIN NOTED CLEAN WITH CLEAR DISCHARGE, DRESSING TO PERINEAL AREA INTACT, DRY AND CLEAN, HD, VIKI CATH TO RUC INTACT, DRESSING D/C/I, GEN WEAKNESS, ASSISTED TO BATHROOM, VOID X1, LAST BM 09/16/18, LOOSE STOOL, IV PATENT AND NO S/S OF INFECTION NOTED, FC REMOVED BY ESTEFANÍA MORALES RN, ON BLADDER TRAINING, ASSISTED TO BATHROOM QH PRN, TAKEN WELL, ALL NEEDS MET, SAFERTY PRECAUTION MET, CONTINUE TO MONITOR
[2018-09-16 07:47] LABS: BAND NEUTROPHIL 0 % (0-10); BASOPHIL 0 % (0-2); MONOCYTE 6 % (0-7); SEGMENTED NEUTROPHILS 88 % (37-75)
[2018-09-16 07:49] LABS: rbc morphology (normal/abnorm) ABNORMAL (NORMAL)
[2018-09-16 07:50] LABS: PLATELET MORPHOLOGY PLATELETS INCREASED
[2018-09-16 09:46] VITALS: BP 117/74
--- NOTE | 2018-09-16 09:59 | NUR ---
PT IN BED, IN NO ACUTE DISTRESS, AM MED GIVEN PER MD ORDER VIA EMAR, TAKEN WELL, NO ASE NOTED AT THIS TIME, ALL NEEDS MET, CONTINUE TO MONITOR AND F/U
[2018-09-16 12:43] VITALS: BP 113/60
--- NOTE | 2018-09-16 13:57 | NUR ---
PT SLEEPING IN BED, IN NO ACUTE RESP DISTRESS, SAFERTY PROTOCOL FOLLOWED, CONTINUE TO MONITOR
--- NOTE | 2018-09-16 14:06 | NUR ---
PT ASSISTED TO BATHROOM, VOIDED X 1, ASSISTED BACK TO BED, IN NO ACUTE DISTRESS, SAFETY WATCHED, CONTINUE TO MONITOR
--- NOTE | 2018-09-16 15:18 | NUR ---
ASSISTED TO BATHROOM, VOID X 1, ASSISTED BACK TO BED, SAFETY PROTOCOL FOLLOWED, CONTINUE TO MONITOR
--- NOTE | 2018-09-16 17:09 | NUR ---
PT ASSITED TO BATHROOM, VOID X 1, ASSISTED BACK TO BED, DRESSING CHANGED, REPORTED NO PAIN/DISCOMOFRT AT THIS TIME, SAFETY PRECAUTION FOLLOWED, CONTINUE TO MONITOR
--- NOTE | 2018-09-16 17:59 | NUR ---
PT RESTING IN BED, AXOX4, IN NO ACUTE RESP DISTRESS, DENIED PAIN/CP/PARKER, DENIED N/V/DIZZINESS, NO FACIAL DROOP NOTED, NO SLURRED SPEECH NOTED, LUNGS CTA, RA, AMBULATORY WITH ASSISTED, CAP REFIL < 3 SECS, PALP PULSES TO ALL EXTREMITIES, BS ACTIVE X 4, IV PATENT AND NO INFILTRATION NOTED, VIKI CATH TO (R) CHEST PATENT AND DRESSING C/D/I, WOUND DRESSING ON PERINEAL AREA C/D/I, ALL NEEDS MET AT THIS TIME, CALL LIGHT IN REACH, BED AT LOW POSITION, RAILS X 2, WILL ENDORSE TO ONCOMING RN
[2018-09-16 18:08] VITALS: BP 123/75
--- NOTE | 2018-09-16 20:00 | NUR ---
PT A/A/O X4, FAMILY AT BEDSIDE. PT DENIES DIZZINESS AND HEADACHE. BREATH SOUNDS CLEAR. BREATHING EVEN AND UNLABORED ON ROOM AIR. DENIES CHEST PAIN AND PRESSURE. BOWEL SOUNDS ACTIVE. NO C/O N/V AND ABD PAIN. WOUND ON THE RIGHT BUTTOCKS NOTED WITH DRESSING C/D/I. DENIES PAIN ON AFFECTED AREA. VIKI CATH WITH PIGTAIL NOTED C/D/I ON THE RIGHT CHEST. MADE PT COMFORTABLE. PLACED CALL LIGHT WITH IN REACH. WILL CONTINUE TO MONITOR.
--- NOTE | 2018-09-16 20:00 | NUR ---
PT A/A/O X4. DENIES DIZZINESS AND HEADACHE. BREATH SOUNDS CLEAR. BREATHING EVEN AND UNLABORED ON ROOM AIR. DENIES CHEST PAIN AND PRESSURE. BOWEL SOUNDS ACTIVE. NO C/O N/V AND C/O ABD DISCOMFORT THUS FAR. DENIES NEED FOR PAIN MEDICATION. ECHYMOSIS NOTED ON TABITHA EYES. LEFT SIDED WEAKNESS NOTED. IV INTACT ON THE RAC INFUSING WITH NS AT 150 ML/HR. MADE PT COMFORTABLE. PLACED CALL LIGHT WITH IN REACH. WILL CONTINUE TO MONITOR.
[2018-09-16 21:27] VITALS: BP 116/74
--- NOTE | 2018-09-17 01:00 | NUR ---
PT RESTING WITH EYES CLOSED. NO DISTRESS AND DISCOMFORT NOTED. WILL CONTINUE TO MONITOR.
--- NOTE | 2018-09-17 05:58 | NUR ---
PT QUIET AND RESTING. DRESSING CHANGED ON THE BUTTOCKS WITH OPTIFOAM. PT TOLERATED IT WELL. OLD DRESSING WITH SMALL AMOUNT OF SANGUINEOUS DRAINAGE NOTED. VIKI CATH IN PLACE. MADE PT COMFORTABLE. WILL ENDORSE TO THE AM NURSE ACCORDINGLY.
[2018-09-17 06:01] VITALS: BP 128/79
[2018-09-17 06:21] LABS: BASOPHIL % 0.5 % (0-2); PLATELET COUNT 230 x10^3mcL (130-400)
[2018-09-17 06:30] LABS: CALCIUM 7.8 mg/dL (8.5-10.1); CARBON DIOXIDE 26.2 mmol/L (21-32); MAGNESIUM 1.9 mg/dL (1.8-2.4); PHOSPHOROUS 2.7 mg/dL (2.5-4.9); POTASSIUM SERUM 3.7 mmol/L (3.5-5.1)
[2018-09-17 06:32] LABS: RED CELL DISTRIBUTION WIDTH 16.6 % (11.5-14.5)
[2018-09-17 06:43] LABS: CREATININE SERUM 5.2 mg/dL (0.6-1.0)
--- NOTE | 2018-09-17 07:05 | NUR ---
CREAT RESULTS ENDORSED TO MAX HE.
--- NOTE | 2018-09-17 07:30 | NUR ---
PT ENDORSE TO ME THIS MORNING, AA/O X4 /BREATHING EVEN AND UNLABORED ON RA, NO ACUTE RESP DISTRESS OR SOB NOTED. TELE 6 SR NOTED, HR 94, DENIES ANY CP OR PRESSURE. BOWEL SOUNDS ACTIVE, PER PT HAS BM THIS AM/ SOFT. VOIDS FREELY. STRICT I & O 1200 DAILY. HD PT, LAST HD 09/15 2L OUT. SCHD FOR HD TODAY, QUINTION CATH RIGHT CHEST WITH PIGTAIL.
--- NOTE | 2018-09-17 07:30 | NUR ---
PT IS ABM WIHT GEN WEAKNESS/ BRP. PERINEAL WOUND DRSG INTACT/ PINROSE DRAIN INTACT. IV TO THE RFA INTACT AND PATENT/ NO REDNESS OR SWELLING NOTED/ HEPLOCKED. CALL LIGHT IN REACH. BED IN LOW POSITION. WILL CONTINE TO MONITOR.
[2018-09-17 09:07] VITALS: BP 119/75
--- NOTE | 2018-09-17 09:56 | NUR ---
PT BUN/CREAT 19.0/5.2 DR. PACHECO MADE AWARE. PT IS SCHD FOR HD TODAY. WILL CONTINUE TO MONITOR.
[2018-09-17 12:29] VITALS: BP 122/83
--- NOTE | 2018-09-17 14:20 | NUR ---
HD NURSE AT BEDSIDE STARTING HEMODIALYSIS. WILL CONTINUE TO MONITOR.
--- NOTE | 2018-09-17 17:49 | NUR ---
HEMODIALYSIS COMPLETE/ TOTAL OUT 1L. WILL CONTINUE TO MONITOR.
[2018-09-17 18:00] VITALS: BP 120/78
--- NOTE | 2018-09-17 18:49 | NUR ---
NO ACUTE CHANGES AT THIS TIME. NO ACUTE RESP DISTRESS OR SOB NOTED. DENIES ANY CP OR PRESSURE. PT WILL REMAIN NPO FOR BREAKFAST 09/18/18 FOR YANELI SPLIT TUNNELED HD CATHETER. VIKI CATH TO RIGHT CHEST WITH PIGTAIL INTACT AND PATENT. WILL ENDORSE TO INCOMING RN.
--- NOTE | 2018-09-17 19:10 | NUR ---
RECEIVED PT FROM PREVIOUS SHIFT NURSE. PT AOX4. DENIES PARKER/DIZZINESS. MED SURG PT. DENIES CP/PRESSURE. DENIES SOB/DIFFICULTY BREATHING, ON RA. VIKI CATH TO R. CHEST, IN PLACE. PERINEAL ABSCESS WITH MYRA DRAIN IN PLACE, DSG IN PLACE, CDI. PT REFUSED IV ACCESS. BED IN LOWEST POSITION. CALL LIGHT WITHIN REACH. WILL CONTINUE TO MONITOR.
[2018-09-17 21:05] VITALS: BP 113/70
--- NOTE | 2018-09-18 02:00 | NUR ---
PT RESTING IN BED. RR EVEN AND UNLABORED. IN NO ACUTE DISTRESS. BED IN LOWEST POSITION. CALL LIGHT WITHIN REACH. WILL CONTINUE TO MONITOR.
[2018-09-18 04:42] VITALS: BP 112/73
[2018-09-18 06:11] LABS: BASOPHIL % 0.4 % (0-2); PLATELET COUNT 248 x10^3mcL (130-400)
[2018-09-18 06:29] LABS: CALCIUM 7.9 mg/dL (8.5-10.1); CARBON DIOXIDE 26.2 mmol/L (21-32); MAGNESIUM 1.6 mg/dL (1.8-2.4); PHOSPHOROUS 2.3 mg/dL (2.5-4.9)
--- NOTE | 2018-09-18 07:30 | NUR ---
PT ENDORSE TO ME THIS MORNING. LAYING IN BED RESTING, AA/O X4. BREATHING EVEN AND UNLABORED ON RA. NO ACUTE RESP DISTRESS OR SOB NOTED. MEDSURG/ DENIES ANY CP OR PRESSURE. LAST BM 09/17 SOFT. PT REMAINS NPO THIS AM FOR PERMANENT VIKI CATH. LAST HD 09/18 1L OUT, VIKI CATH RIGHT CHEST WITH PIGTAIL INTACT. CALL LIGHT IN REACH. BED IN LOW POSITION, WILL CONTINUE TO MONITOR.
[2018-09-18 08:06] VITALS: BP 123/79
[2018-09-18 08:15] VITALS: BP 128/81
--- NOTE | 2018-09-18 11:11 | NUR ---
PT TAKEN TO OR FOR PROCEDURE. BREATHING EVEN AND UNLABORED ON RA, NO ACUTE RESP DISTRESS OR SOB NOTED. WILL CONTINUE TO MONITOR WHEN PT RETURNS TO FLOOR.
--- NOTE | 2018-09-18 11:24 | NUR ---
PT BACK TO FLOOR, WAS AN UNEXPECTED EMERGENCY IN OR. OR NURSE WILL CALL [facility] WHEN THEY WILL RETURN FOR PATIENT. PT BREATHING AND UNLABORED ON RA, NO ACUTE RESP DISTRESS OR SOB NOTED. WILL CONTINUE TO MONITOR.
--- NOTE | 2018-09-18 13:37 | NUR ---
PT TAKEN DOWN TO OR FOR PROCEDURE. PT BREATHING EVEN AND UNLABORED ON RA, NO ACUTE RESP DISTRESS OR SOB NOTED. WILL CONTINUE CARE WHEN PT RETURNS TO FLOOR.
[2018-09-18 16:30] VITALS: BP 119/69
--- NOTE | 2018-09-18 16:30 | NUR ---
PT BACK FROM PROCEDURE. AA/O X4 BREATHING EVEN AND UNLABORED ON RA, NO ACUTE RESP DISTRESS OR SOB NOTED. VS 119/69, HR 72, 98 RA, RESP 18 TEMP 98.3 NEW CHEST RIJ INTACT. AT BEDSIDE. WILL CONTINUE TO MONITOR.
--- NOTE | 2018-09-18 17:40 | NUR ---
SPOT CK PT ACCU CHECK 66, GAVE APPLE JUICE WITH ONE PACK OF SUGAR, FOOD TRAY IN PT ROOM, SITTING UP EATING. AT BEDSIDE ENCOURAGING PT TO EAT. ARSENIO 10 MIIN LATER 65. PT IS NOT SYMPTOMATIC. WILL ARSENIO ACCU CHECK AFTER FINISHES DINNER.
--- NOTE | 2018-09-18 18:23 | NUR ---
PT TOLERATED 80% OF HER DINNER. ARSENIO ACCU 118. PT IS RESTING, BREATHING EVEN AND UNLABORED ON RA. NO ACUTE RESP DISTRESS OR SOB NOTED. BY HER SIDE.
--- NOTE | 2018-09-18 18:37 | NUR ---
WILL ENDORSE TO INCOMING RN.
--- NOTE | 2018-09-18 19:05 | NUR ---
RECEIVED PT FROM PREVIOUS SHIFT NURSE. PT AOX4. DENIES PARKER/DIZZINESS. MED SURG PT, DENIES CP/PRESSURE. DENIES SOB/DIFFICULTY BREATHING. IV TO LAC, INTACT AND PATENT. R. CHEST IJ IN PLACE. BED IN LOWEST POSITION. CALL LIGHT WITHIN REACH. WILL CONTINUE TO MONITOR.
[2018-09-18 20:06] VITALS: BP 128/81
--- NOTE | 2018-09-19 02:00 | NUR ---
PT RESTING IN BED. RR EVEN AND UNLABORED. IN NO ACUTE DISTRESS. CALL LIGHT WITHIN REACH. BED IN LOWEST POSITION. WILL CONTINUE TO MONITOR.
[2018-09-19 05:30] VITALS: BP 128/79
--- NOTE | 2018-09-19 06:35 | NUR ---
PT REFUSED AM BLOOD DRAW. DR. OTT NOTIFIED VIA [employer].
--- NOTE | 2018-09-19 07:20 | NUR ---
ASSUMED CARE OF PATIENT. SEEN AWAKE AND ALERT THIS MORNIGN. NO COMPLAINTS OF PAIN OR DISCOMFORT. NO APPARENT DISTRESS NOTED. RIJ CATHETER INTACT, DRESSING CDI. IV ON LAC SALINE LOCKED AND INTACT, NO REDNESS/SWELLING NOTED. WILL CONTINUE TO MONITOR.
[2018-09-19 08:59] VITALS: BP 155/80
--- NOTE | 2018-09-19 09:25 | NUR ---
PER PHARMACY, PROCRIT HELD UNTIL AFTER DIALYSIS.
[2018-09-19 10:26] LABS: BASOPHIL % 0.4 % (0-2); PLATELET COUNT 280 x10^3mcL (130-400)
[2018-09-19 10:38] LABS: RED CELL DISTRIBUTION WIDTH 16.9 % (11.5-14.5)
--- NOTE | 2018-09-19 10:59 | NUR ---
PATIENT SEEN IN BED WITH NO ACUTE DISTRESS. NO COMPLAINTS OF PAIN AT THIS TIME. IV REMAINS SALINE LOCKED. NO NEW ISSUES.
--- NOTE | 2018-09-19 12:00 | NUR ---
PERIANAL WOUND CLEAN WITH MYRA DRAIN INTACT. NO SIGN/SX OF INFECTION NOTED. WOUND CLEANED WITH NS AND STERILE GAUZE. PATIENT REFUSING DRESSING COVER AND INSTEAD UTILIZING UNDERWEAR WITH PAD. NO COMPLAINTS OF PAIN IN THIS AREA.
[2018-09-19 12:03] LABS: CALCIUM 8.2 mg/dL (8.5-10.1); POTASSIUM SERUM 3.9 mmol/L (3.5-5.1)
[2018-09-19 12:10] LABS: CARBON DIOXIDE 24.1 mmol/L (21-32)
[2018-09-19 12:14] LABS: CREATININE SERUM 5.6 mg/dL (0.6-1.0)
--- NOTE | 2018-09-19 13:12 | NUR ---
SEEN RESTING IN ROOM WITH NO NEW ISSUES.
--- NOTE | 2018-09-19 15:47 | NUR ---
Follow-up Nutrition Assessment: Oliva Llanos F/U Rm 235B Dx: Acure Renal failure, Severe Metabolic Acidosis PMHx:HTN, DM, CKD/ESRD Labs: (09/18) Cl 108H, Creat. 4.0H, Ca 7.9L, (09/19) WBC 11.1H, Hgb. 9.3L, Hct. 28L Meds: Colace, Humulin, Lactinex, Nephro-jourdan, Zofran Diet: Renal PO Intake: (09/17) 80%-100%. (09/18) NPO Weights: (09/10) 72kg, (09/11) 73kg, (09/14) 75.5kg (09/19) Bed scale: 148#, 67kg I/Os: (09/19) Total intake: 540, Total output: none documented, Fluid balance: 540 Skin: S/P perianal abscess with janny drain, dressing CDI Luis: 19 Edema: None noted GI: Reporting soft stools, no diarrhea or constipation Last BM: 09/17/18 RD Note (09/19/18): Pt stated that after her surgery yesterday she was hungry and that she ate all of her breakfast this morning except the cream of wheat because she does not like it. Pt also stated that she does not like the taste of Nepro so she does not want them. She states has no N/V/C/D and has already been given renal health information. Estimated Nutritional Needs Based on ideal body weight (50 kg) (based on prior assessments) Energy: 1500-1750kcal/day (30-35kcal/kg) Protein: 60-75g/day (1.2-1.5g/kg for HD) Fluid: 1500-1750mL/day (1 mL/kcal) or per MD Nutrition Diagnosis: 1. Inadequate oral intake r/t poor appetite aeb overall avergae PO intakes of 52%. (Improved) 2. Increased nutrient needs r/t increased metabolic demands aeb patient on HD. (Improving) . Intervention: 1. Continue with Renal diet Monitor/Evaluate: Goal: Have pt meet at least 75% of estimated needs Monitor: PO intake, Labs, GI function MR F/U 09/22-
--- NOTE | 2018-09-19 15:48 | NUR ---
Intervention: 1. Continue with Renal diet
--- NOTE | 2018-09-19 16:00 | NUR ---
CONTINUING TO RECIEVE HEMODYALSIS. NO NEW ISSUES.
[2018-09-19 18:01] VITALS: BP 125/77
--- NOTE | 2018-09-19 18:55 | NUR ---
PATIENT SEEN IN BED WITH NO COMPLAINTS OF PAIN OR DISCOMFORT. IV TO RIJ INTACT. IV TO LAC SALINE LOCKED, NO REDNESS OR SWELLING NOTED. FAMILY CURRENTLY AT BEDSIDE. WILL ENDORSE CARE TO ONCOMING RN.
--- NOTE | 2018-09-19 19:48 | NUR ---
AWAKE AND VERBALLY RESPOPNSIVE. ABLE TO MAKE NEEDS KNOWN. SKIN WARM AND DRY TO TOUCH WITH PERIA-ANAL INCISSION S/P I&D OF PERIANAL ABSCESS WITH MYRA DRAIN WITH SEROSANGINOUS DRAIANGE SCANTY AMOUNT. DENEIS ANY PAIN AT THIS TIME. ABLE TO REPOSITION SELF IN BED. BLOOD SUGATR CHECK 80MG/DL, HS SNACK GIVEN , TOELRATED WELL.
[2018-09-19 20:38] VITALS: BP 122/78
--- NOTE | 2018-09-19 22:00 | NUR ---
CONTINUES ON ATB IVPB FOR MANAGEMENT OF UTI ORDERED. NO ADVERSE REACTION NOTED. CALL LIGHT WITHIN REACH. BED IN LOWEST POSITION FOR SAFETY.
--- NOTE | 2018-09-20 05:32 | NUR ---
BLOOD SUGAR CHECK DONE 1001MG/DL, NO S/S OF GLYCEMIC REACTION. CONTINUES ON ATB IVPB ORDERED. KARYN DVERSE REACTION NOTED. ALL NEEDS ATTENDED.
[2018-09-20 05:51] VITALS: BP 120/69
--- NOTE | 2018-09-20 07:10 | NUR ---
RECEIVED PT IN BED, AXOX4, TURKMEN/TAGALOG, VERBAL, CALM AND COOPERATIVE, PERRLA, REPORTED NO PAIN/CP/DISCOMFORT/PRESSURE, DENIED N/V/DIZZINESS, NO FACIAL DROOP/SLUURED SPEECH, IN NO ACUTE RESP DISTRESS, RA, MEDSURG, LUNGS CTA, CHEST RISE WYMMETRICALLY, PALP PULSES, CAP REFILL < 2 SECS, ABD ROUND AND NON-TENDER TO TOUCH, BS ACTIVE X 4, LAST BM 09/20/18, SOFT, AMB WITH ASSIST, ABLE TO MOVE ALL EXTREMITIES, JOINT INTACT, CONTINENT, SKIN W/D/C, WOUND TO PERINEAQL S/P ABSCESS C&D W/ MYRA DRAINAGE, DRESSING C/D/I, IV TO LAC INTACT AND NONINFILTRATION, PERM CATH TO R CHEST PATENT, DRESSING C/D/I, ALL NEEDS MET, SAFETY PRECAUTION FOLLOWED, CONTINUE TO MONITOR
[2018-09-20 09:25] VITALS: BP 121/73
--- NOTE | 2018-09-20 10:15 | NUR ---
PT IN BED, IN NO ACUTE RESP DISTRESS, AM MEDS GIVEN PER MD ORDER VIA EMAR, TAKEN WELL, NO ASE NOTED AT THIS TIME, AL NEEDS MET, SAFETY PROTOCOL FOLLOWED, CONTINUE TO MONITOR
--- NOTE | 2018-09-20 13:59 | NUR ---
PT RESTING IN BED, EYES CLOSED, ASSISTED TO BATHROOM, VOID X 1, ASISSTED BACK TO BED, ALL NEEDS MET, SAFETY PRECAUTION FOLLOWED, CONTINUE TO MONITOR
[2018-09-20 16:48] VITALS: BP 105/69
--- NOTE | 2018-09-20 18:03 | NUR ---
PT RESTING IN BED, AXOX4, IN NO ACUTE RESP DISTRESS, DENIED PAIN/CP/PARKER, DENIED N/V/DIZZINESS, NO FACIAL DROOP NOTED, NO SLURRED SPEECH NOTED, LUNGS CTA, RA, AMBULATORY WITH ASSISTED, CAP REFIL < 3 SECS, PALP PULSES TO ALL EXTREMITIES, BS ACTIVE X 4, IV PATENT AND NO INFILTRATION NOTED, PERM CATH TO (R) CHEST PATENT AND DRESSING C/D/I, WOUND DRESSING ON PERINEAL AREA C/D/I, ALL NEEDS MET AT THIS TIME, CALL LIGHT IN REACH, BED AT LOW POSITION, RAILS X 2, WILL ENDORSE TO ONCOMING RN
--- NOTE | 2018-09-20 20:00 | NUR ---
IN BED AAO X4 VERBAL NO DISTRESS RA LUNGS CTA, DENIES PAIN PERMACATH RT CHEST WITH INTACT DRESSING, NO SIGNS OF IRRITATION, AMBULANT, ABLE TO DO PERICARE AND TAKES CARE OF PERINEAL ABSCESS, MYRA DRAIN INPLACED PT CHANGE PADS NEEDED, NO BLEEDING, IV ACCESS @ LAC PATENT AND FLUSHING WELL, NON INFIL, SHIFT ASSESSMENT DONE, ATTENDED NEEDS CALL LIGHT AT REACH, CONT TO MONITOR.
[2018-09-20 20:08] VITALS: BP 113/66
--- NOTE | 2018-09-20 23:44 | NUR ---
PT ASLEEP NO S/SX OF PAIN OR DISCOMFORTS, NO ADV REACTION FROM IV THERAPY, CHECKED AT INTERVALS.
[2018-09-21 05:24] VITALS: BP 109/64
--- NOTE | 2018-09-21 05:55 | NUR ---
PT SLEPT WELL DURING THE SHIFT NO SIGNIFICANT CHANGES, DENIES PAIN, INTACT PADS TO PERINEAL AREA ABSCESS WITH MYRA DRAINAGE, PT CHANGE PADS PRN, BS 97 MG/DL, ATTENDED NEEDS, WILL MONITOR.
[2018-09-21 06:43] LABS: BASOPHIL % 0.6 % (0-2); PLATELET COUNT 305 x10^3mcL (130-400)
[2018-09-21 07:03] LABS: CALCIUM 8.4 mg/dL (8.5-10.1); CARBON DIOXIDE 22.6 mmol/L (21-32); MAGNESIUM 1.9 mg/dL (1.8-2.4); POTASSIUM SERUM 3.4 mmol/L (3.5-5.1)
[2018-09-21 07:10] LABS: RED CELL DISTRIBUTION WIDTH 17.2 % (11.5-14.5)
--- NOTE | 2018-09-21 07:41 | NUR ---
RECEIVED PT IN BED FROM NIGHT, AXOX4, TOGOLESE/TAGALOG, VERBAL, CALM AND COOPERATIVE W/ POC, PERRLA, REPORTED NO PAIN/CP/DISCOMFORT/PRESSURE, DENIED N/V/DIZZINESS, NO FACIAL DROOP/SLUURED SPEECH, IN NO ACUTE RESP DISTRESS, RA, MEDSURG, LUNGS CTA, CHEST RISE SYMMETRICALLY, PALP PULSES, CAP REFILL < 2 SECS, ABD ROUND AND NON-TENDER TO TOUCH, BS ACTIVE X 4, LAST BM 09/21/18, SOFT, AMB WITH ASSIST, ABLE TO MOVE ALL EXTREMITIES W/ NO DIFFICULTY, , JOINT INTACT, CONTINENT, SKIN W/D/C, WOUND TO PERINEAQL S/P ABSCESS C&D W/ MYRA DRAINAGE, DRESSING C/D/I, IV TO LAC INTACT AND NONINFILTRATION, PERM CATH TO R CHEST PATENT, DRESSING C/D/I, ALL NEEDS MET AT THIS TIME, CALL LIGHT IN REACH, BED AT LOW POSITION, RAILS X 2, CONTINUE TO MONITOR
[2018-09-21 07:51] LABS: CREATININE SERUM 5.8 mg/dL (0.6-1.0)
--- NOTE | 2018-09-21 07:59 | NUR ---
RECEIVED REPORT FROM LAB R/T CR LEVEL AT 5.8, PT ON HD 3X/WEEK ON MD RHEA PAGED AND MADE AWARE, NNO, PT AWARE, CONTINUE TO MONITOR
[2018-09-21 09:32] VITALS: BP 103/74
--- NOTE | 2018-09-21 14:02 | NUR ---
PT IN BED, AXOX4, RESP EVEN AND IN NO ACUTE DISTRESS, IV DRESSING TO LAC CHANGED, DRESSING CDI, ALL NEEDS AND CONCERNS ADDRESSED AT THIS TIME, SAFETY PROTOCOL FOLLOWED, CONTINUE TO MONITOR
--- NOTE | 2018-09-21 17:56 | NUR ---
PT RESTING IN BED, WATCHIGN IN TV, AXOX4, IN NO ACUTE RESP DISTRESS, DENIED PAIN/CP/PARKER, DENIED N/V/DIZZINESS, NO FACIAL DROOP NOTED, NO SLURRED SPEECH NOTED, LUNGS CTA, RA, AMBULATORY WITH ASSISTED, CAP REFIL < 2 SECS, PALP PULSES TO ALL EXTREMITIES, BS ACTIVE X 4, IV PATENT AND NO INFILTRATION NOTED, PERM CATH TO (R) CHEST PATENT AND DRESSING C/D/I, WOUND DRESSING ON PERIANAL AREA CHANGED, DRSG C/D/I, ALL NEEDS ADDRESSED AT THIS TIME, CALL LIGHT IN REACH, BED AT LOW POSITION, RAILS X 2, WILL ENDORSE TO ONCOMING RN
[2018-09-21 18:49] VITALS: BP 114/81
[2018-09-21 20:45] VITALS: BP 112/69
--- NOTE | 2018-09-21 21:20 | NUR ---
SPOKE TO DR. WHITT. MADE AWARE OF MISSING AM [facility] FOR HD TOMORROW.
--- NOTE | 2018-09-21 22:15 | NUR ---
PT RECIEVED FROM DAY NURSE. PT RESTING IN BED COMFORTABLY. FAMILY AT BEDSIDE. NO S/S OF PAIN AT THIS TIME. AO X4, CALM AND COOPERATIVE. PALPABLE PULSES, NO EDEMA NOTED. BREATHING EVEN AND UNLABORED ON RA. ABD SOFT AND ROUND, BOWEL SOUNDS ACTIVE X4. NO PAIN OR TENDERNESS TO PALPATION. LAC IV CDI, INFUSING. BED AT LOWEST POSITION, CALL LIGHT WITHIN REACH. WILL CONTINUE TO MONITOR.
--- NOTE | 2018-09-22 | NUR ---
PT RESTING IN BED COMFORTABLY. NO S/S OF PAIN AT THIS TIME. BREATHING EVEN AND UNLABORED. BED AT LOWEST POSITION. CALL LIGHT WITHIN REACH. WILL CONTINUE TO MONITOR.
--- NOTE | 2018-09-22 02:58 | NUR ---
PT RESTING IN BED COMFORTABLY WITH EYES CLOSED. NO S/S OF PAIN AT THIS TIME. BREATHING EVEN AND UNLABORED. BED AT LOWEST POSITION, CALL LIGHT WITHIN REACH. WILL CONTINUE TO MONITOR.
[2018-09-22 05:27] VITALS: BP 120/70
--- NOTE | 2018-09-22 05:33 | NUR ---
I HAVE REVIEWED THE DATA COLLECTION BY YING WU: MAURICE SANCHEZ ENTERED ON 09/21-09/22 I CONCUR WITH THE DATA AND ANY EXCEPTIONS OR COMMENTS ARE LISTED BELOW:
[2018-09-22 06:27] LABS: BASOPHIL % 0.8 % (0-2); PLATELET COUNT 311 x10^3mcL (130-400)
--- NOTE | 2018-09-22 06:40 | NUR ---
PT RESTING IN BED COMFORTABLY. DENIES PAIN AT THIS TIME. BREATHING EVEN AND UNLABORED ON RA. PT S/P I & D WEEKLY PICTURE OBTAINED. NOTED OPEN WOUND WITH PACKING. LONGEST MEASURING 6/5 CM WIDEST 2CM. SOME PURULENT DRAINAGE NOTED TO ABD PAD. PT REFUSED TO CHANGE AT THIS TIME. STATES "WILL CHANGE AFTER BREAKFAST. HD TODAY. CALL LIGHT WITHIN REACH. BED AT LOWEST POSITION. WILL ENDORSE TO DAY NURSE.
[2018-09-22 06:45] LABS: MAGNESIUM 1.9 mg/dL (1.8-2.4); PHOSPHOROUS 4.9 mg/dL (2.5-4.9)
[2018-09-22 06:48] LABS: CALCIUM 8.3 mg/dL (8.5-10.1); CARBON DIOXIDE 21.7 mmol/L (21-32); POTASSIUM SERUM 3.5 mmol/L (3.5-5.1)
[2018-09-22 06:56] LABS: RED CELL DISTRIBUTION WIDTH 16.6 % (11.5-14.5)
[2018-09-22 07:08] LABS: CREATININE SERUM 6.8 mg/dL (0.6-1.0)
--- NOTE | 2018-09-22 07:55 | NUR ---
HANDOFF REPORT RECEIVED. PATIENT AWAKE HAVING BREAKFAST. DENIES ANY DISCOMFORT. AWARE OF HD TODAY. INSTRUCTED TO CALL FOR ASSIST. CALL LUI WITHIN REACH.
[2018-09-22 08:55] VITALS: BP 121/76
--- NOTE | 2018-09-22 11:45 | NUR ---
NO COMPLAINTS. AWAITING FOR HD TODAY.
[2018-09-22 16:56] VITALS: BP 128/84
[2018-09-22 17:19] VITALS: BP 104/43; BP 128/82
--- NOTE | 2018-09-22 17:21 | NUR ---
STATED " I AM GOING HOME! IT INFRASTRU[employer]URE CONSULTANT HAS ARRANGED THE OUTPATIENT DIALYSIS".TO ANGEL LUIS WITH . NO DISCHARGE ORDERS SEEN.
[2018-09-22 18:41] VITALS: BP 128/82
--- NOTE | 2018-09-22 19:10 | NUR ---
CARE ASSUMED FROM OUTGOING RN. PT RESTING COMFORTABLY IN BED. DAUGHTER AT BEDSIDE. NO ACUTE DISTRESS NOTED. EVEN AND UNLABORED RESPIRATION ON RA. IVL INTACT. DENIES ANY PAIN AT THIS TIME. PT AWAITING DISCHARGE INSTRUCTION. BED IN LOWEST POSITION. SIDE RAILS UPX2. CALL LIGHT WITHIN REACH. WILL CONTINUE TO MONITOR.
--- NOTE | 2018-09-22 19:14 | NUR ---
HANDOFF REPORT GIVEN TO YING RIVERA.
--- NOTE | 2018-09-22 20:48 | NUR ---
DISCHARGE INSTRUCTIONS GIVEN BY RESOURCE RN. BELONGING NOTED FOR. PRESCRIPTION GIVEN. IV REMOVED, CATHETER INTACT, PRESSURE APPLIED. NO BLEEDING NOTED. PT ABLE TO AMBULATE WITH DAUGHTER AT SIDE. PT DISCHARGED.
== END 2018-09-22 20:47 | disposition home or self-care (01) | DRG 853 ==
LOC: ED 21:43 → MU 09-10 02:00 → DU 09-10 02:00 → IC 09-10 02:00 → DU 09-11 14:22 → IC 09-13 15:01 → DU 09-14 22:45 → MU 09-17 14:04
PROVIDERS: Emergency Medicine; Internal Medicine; Internal Medicine Nephrology; Surgery; ADMIT Internal Medicine
PROC: 5A1D70Z Performance of Urinary Filtration, Intermittent, Less than 6 Hours Per Day (ICD-10-PCS; 2018-09-10)
PROC: 02HV33Z Insertion of Infusion Device into Superior Vena Cava, Percutaneous Approach (ICD-10-PCS; 2018-09-10)
PROC: B548ZZA Ultrasonography of Superior Vena Cava, Guidance (ICD-10-PCS; 2018-09-10)
PROC: 30233N1 Transfusion of Nonautologous Red Blood Cells into Peripheral Vein, Percutaneous Approach (ICD-10-PCS; 2018-09-10)
PROC: 0D9P00Z Drainage of Rectum with Drainage Device, Open Approach (ICD-10-PCS; principal; 2018-09-10 09:30)
PROC: 30233N1 Transfusion of Nonautologous Red Blood Cells into Peripheral Vein, Percutaneous Approach (ICD-10-PCS; 2018-09-12)
PROC: 0W3N0ZZ Control Bleeding in Female Perineum, Open Approach (ICD-10-PCS; 2018-09-12)
PROC: 5A1D70Z Performance of Urinary Filtration, Intermittent, Less than 6 Hours Per Day (ICD-10-PCS; 2018-09-13)
PROC: 5A1D70Z Performance of Urinary Filtration, Intermittent, Less than 6 Hours Per Day (ICD-10-PCS; 2018-09-15)
PROC: 5A1D70Z Performance of Urinary Filtration, Intermittent, Less than 6 Hours Per Day (ICD-10-PCS; 2018-09-17)
PROC: 05HM33Z Insertion of Infusion Device into Right Internal Jugular Vein, Percutaneous Approach (ICD-10-PCS; 2018-09-18)
PROC: 5A1D70Z Performance of Urinary Filtration, Intermittent, Less than 6 Hours Per Day (ICD-10-PCS; 2018-09-19)
DX: A41.9 Sepsis, unspecified organism (principal); R65.21 Severe sepsis with septic shock; N18.6 End stage renal disease; G93.41 Metabolic encephalopathy; E43 Unspecified severe protein-calorie malnutrition; K85.90 Acute pancreatitis without necrosis or infection, unspecified; N39.0 Urinary tract infection, site not specified; K61.2 Anorectal abscess; I12.0 Hypertensive chronic kidney disease with stage 5 chronic kidney disease or end stage renal disease; D62 Acute posthemorrhagic anemia; E87.0 Hyperosmolality and hypernatremia; I48.91 Unspecified atrial fibrillation; E11.22 Type 2 diabetes mellitus with diabetic chronic kidney disease; D63.1 Anemia in chronic kidney disease; E83.51 Hypocalcemia; E87.6 Hypokalemia; E83.39 Other disorders of phosphorus metabolism; Z90.49 Acquired absence of other specified parts of digestive tract; Z91.19 Patient's noncompliance with other medical treatment and regimen; Z68.26 Body mass index [BMI] 26.0-26.9, adult
CPT/HCPCS: 46040; 36430 ×2; 36810; 90935; 37799; 36558; C1752; 36556; 82962; 83880; 84439; 86580; 97530-GP; A4301; G0378; J0282; J0610; J0690; J0696; J0744; J0885-EC; J1170; J1642; J1644; J1815; J2001; J2060; J2150; J2250; J2270; J2405; J2543; J2704; J3010; J3475; J3480; J3490; J7030; J7040; J7050; P9016; P9047; P9059; Q0092; Q0163

== ENCOUNTER 2018-10-21 19:55 | Inpatient (IN) | payer OTHER, MEDICAID ==
[~2018-10-21] VITALS: Ht 157.5 cm; Wt 67.6 kg
[~2018-10-21 19:55] MED LIST changes: +LOSARTAN POTASS25 M1 PO
[2018-10-21 20:05] VITALS: Ht 157.5 cm; Wt 67.6 kg
--- NOTE | 2018-10-21 21:27 | NUR ---
PT SITTING UP ON EDGE OF BED, AAOX4 WITH NO COMPLAINTS AT THIS TIME. PT STATING SHE WAS SENT HERE BY [facility] TODAY DUE TO HER HD PORT MALFUNCTIONING. PT STATES SHE HAS HD ON . HD PORT TO RT UPPER CHEST, WNL.
[2018-10-21 22:01] LABS: BASOPHIL % 0.8 % (0-2); PLATELET COUNT 294 x10^3mcL (130-400); RED CELL DISTRIBUTION WIDTH 18.6 % (11.5-14.5)
[2018-10-21 22:05] LABS: CALCIUM 8.3 mg/dL (8.5-10.1); CARBON DIOXIDE 25.6 mmol/L (21-32); MAGNESIUM 2.4 mg/dL (1.8-2.4); PHOSPHOROUS 6.3 mg/dL (2.5-4.9)
[2018-10-21 22:08] LABS: CREATININE SERUM 9.7 mg/dL (0.6-1.0)
[2018-10-21] MEDS ORDERED: GLIPIZIDE5 M3 PO (22:52)
--- NOTE | 2018-10-21 22:54 | NUR ---
PT RESTING IN BED WITH NO COMPLIANTS AT THIS TIME. PT NOTED WITH HEALING WOUND/INCISION TO RT INNER BUTTOCKS S/P I&D ON 09/09 FOR A BOIL. PT STATES SHE HAS NOT HAD ANY F/U CARE SINCE. PT NOTED WITH EXTERNAL DRAINAGE/DRESSING, CDI WITH NO DRAINAGE NOTED AT THIS TIME.
--- NOTE | 2018-10-21 23:28 | NUR ---
REPORT GIVEN TO JO ANN HE.
[2018-10-21 23:57] VITALS: BP 129/66
--- NOTE | 2018-10-22 | NUR ---
RECEIVED PT FROM [facility] HAMILTON. PT AOX4, DENIES PARKER/DIZZINESS. MED SURG PT, DENIES CP/PRESSURE. DENIES SOB/DIFFICULTY BREATHING, ON RA. R. CHEST HD CATH IN PLACE. R. INNER BUTTOCKS WITH DRAIN IN PLACE, CDI. IV TO RAC, INTACT AND PATENT. BED IN LOWEST POSITION. CALL LIGHT WITHIN REACH. WILL CONTINUE TO MONITOR.
--- NOTE | 2018-10-22 00:56 | NUR ---
LATE ENTRY: 2355H - RECEIVED FROM ER, TRANSPORTED VIA WHEELCHAIR. AWAKE AND ALERT, ORIENTED TO NAME, PLACE, TIME AND SITUATION. SPEECH CLEAR AND APPROPRIATE. BREATHING EVEN AND UNLABORED ON ROOM, AMBULATORY. STATED HAD DIALYSIS TODAY BUT HAD MALFUNCTION TO DIALYSIS CATHETER AND WAS TOLD TO COME TO ER. DRESSING OVER DIALYSIS CATHETER TO RIGHT CHEST, CDI. NOTED HAS OPEN SURGICAL WOUND WITH MYRA DRAIN TO RIGHT INNER BUTTOCK. MARU JARA IN ROOM WHILE ASSESSING PT AND PHOTODOCUMENTING SKIN ALTERATION TO BUTTOCK. INSTRUCTED ON USE OF CALL LIGHT TO CALL FOR ASSISTANCE. PLACED WITHIN EASY REACH. ENDORSED TO NURSE CHAN
--- NOTE | 2018-10-22 04:30 | NUR ---
PT RESTING IN BED. RR EVEN AND UNLABORED. IN NO ACUTE DISTRESS. CALL LIGHT WITHIN REACH. BED IN LOWEST POSITION. WILL CONTINUE TO MONITOR.
[2018-10-22 06:01] VITALS: BP 109/65
[2018-10-22 06:30] LABS: BASOPHIL % 0.8 % (0-2); PLATELET COUNT 295 x10^3mcL (130-400)
[2018-10-22 06:52] LABS: CALCIUM 8.8 mg/dL (8.5-10.1); CARBON DIOXIDE 22.5 mmol/L (21-32); MAGNESIUM 2.5 mg/dL (1.8-2.4); POTASSIUM SERUM 4.3 mmol/L (3.5-5.1)
--- NOTE | 2018-10-22 07:00 | NUR ---
AAO TIMES 4. NO TELE, MED SURG PATIENT. LUNGS CTA. NO SOB. O2 SAT ON RA 95%. DENIES DISCOMFORT. NO SOB OBSERVED. BS'S ACTIVE TIMES 4. NIKOLAI STRONG. SKIN CDI, EXCEPT SHE HAS A NON FUNCTIONING DIALYSIS PORT TO HER RIGHT UPPER CHEST WALL. PERIPHERAL PULSES PALPABLE. NO EDEMA.
[2018-10-22 07:30] LABS: RED CELL DISTRIBUTION WIDTH 18.9 % (11.5-14.5)
[2018-10-22 08:22] VITALS: BP 97/53
[2018-10-22 08:33] LABS: CREATININE SERUM 9.9 mg/dL (0.6-1.0)
--- NOTE | 2018-10-22 08:35 | NUR ---
PAGED DR HENRY SWAN AT 0835 AND 0900, NO RETURN PAGE BACK. PAGE GATED HER RESULTS FOR BUN 63, CREAT 9.9. THIS PATIENT HAS CONSENT FOR HEMODIALYSIS PERMACATH PLACEMENT TODAY.
--- NOTE | 2018-10-22 09:51 | NUR ---
DR FIGUEROA CALLED ME BACK AT 0948 THAT SHE WAS AWARE OF THE BUN AND CREAT, AND THAT THE PATIENT WILL GET A NEW HEMODIALYSIS PORT AND HD TODAY.
--- NOTE | 2018-10-22 11:23 | NUR ---
WENT TO OR FOR PERMACATH PLACMENT AT 1123, ALL CONSENTS AND SURGICAL CHECK LISTS ARE COMPLETED PER POLICY. SHE WAS AAO TIMES 4, NO C/O PAIN.
[2018-10-22 14:07] VITALS: BP 114/79
--- NOTE | 2018-10-22 14:07 | NUR ---
ARRIVED FROM PACU AT 1407. AAO TIMES 4, SLEEPY BUT AROUSABLE EASILY TO NAME. DRESSING TO RIGHT UPPER CHEST WALL FOR NEW PERMACATH CDI. THERE IS AN ORDER FOR HER TO BE ABLE TO USE THE PERMACATH IMMEDIATELY. VS'S STABLE, SEE COMPUTER GRAPH.
--- NOTE | 2018-10-22 14:17 | NUR ---
BACK FROM OR WITH DRESSING TO RIGHT UPPER CHEST WALL CDI. AAO TIMES 4. DENIES DISCOMFORT. I ASSESSED THE DRAIN TO HER RIGHT INNER BUTTOCK, IT IS CDI, NO SIGNS OF REDNESS OR DRAINAGE, DR FIGUEROA WILL COME ASSESS IT.
[2018-10-22 15:37] VITALS: BP 114/79
--- NOTE | 2018-10-22 16:03 | NUR ---
Discount pharmacy card and list of low cost medical clinics given to patient by Kailey Morillo.
--- NOTE | 2018-10-22 16:07 | NUR ---
TOOK PHOTO OF SITE OF RIGHT INNER BUTTOCKS AFTER THE DRAIN WAS REMOVED BY DR FIGUEROA AND DR PINA. THERE ARE 3 WOUNDS, THE 1ST ONE IS 2 X 1 CM WITH DEPTH OF 2 MM, THE 2ND ONE IS 1 X 0.5 CM, AND THE 3RD ONE IS 0.5 CM X 0.5 CM. CLEANSED WITH NS, APPLIED A FOLDED 4" STERILE FLUFF AND USED PAPER TAPE. I SUPPLIED HER THE WOUND CLEANING SOLUTION AND THE DRESSINGS, HER WILL HELP HER.
[2018-10-22 16:12] VITALS: BP 103/69
--- NOTE | 2018-10-22 16:46 | NUR ---
WOUNDS TO INNER RIGHT BUTTOCK HAVE NO PIRULENT DRAINAGE, INSIDE OF THE WOUND IS GRANULATING, THE BORDERS OF THE WOUND ARE [place] LIKE HER SKIN, NO ERYTHEMA SURROUNDING WOUND, NO SIGNS OF INFECTION. SHE KNOWS TO FOLLOW UP WITH HER MD WITH THESE WOUNDS. I PROVIDED DRESSINGS AND WOUND CLEANSER TO HER, TO USE AFTER SHE HAS A BM OR SHE SOILS IT. NO DRAINAGE NOTED TO WOUND.
--- NOTE | 2018-10-22 17:04 | NUR ---
GAVE DISCHARGE INSTRUCTIONS AND PRESCRIPTION. SHE VERBALIZED "I UNDERSTAND" TO ALL INSTRUCTIONS. HER IS PRESENT AND WILL TAKE HER HOME. RIGHT UPPER CHEST WALL DRESSING/TEGADERM IS CDI, NO SIGNS OF BLEEDING OR DRAINAGE. NO C/O PAIN. NO SOB. COOPERATIVE.
--- NOTE | 2018-10-22 18:02 | NUR ---
PRIOR TO DISCHARGE, I GAVE HER DISCHARGE INSTRUCTIONS, NO PRESCRIPTION. I REMOVED SALINE LOCK ANGIO INACT. DENIES DISCOMFORT. HER IS PRESENT, AND HE IS DRIVING HER HOME. PHOTO WAS TAKEN OF HER DIALYSIS PORT ON HER RIGHT UPPER CHEST, SITE AND TEGADERM IS CDI. SHE KNOWS SHE HAS HEMODIALYSIS TOMORROW.
== END 2018-10-22 17:53 | disposition home or self-care (01) | DRG 466 ==
LOC: ED 19:55 → MU 22:45
PROVIDERS: Emergency Medicine; Surgery; ADMIT General Practice
PROC: 02HV33Z Insertion of Infusion Device into Superior Vena Cava, Percutaneous Approach (ICD-10-PCS; 2018-10-22)
PROC: B548ZZA Ultrasonography of Superior Vena Cava, Guidance (ICD-10-PCS; 2018-10-22)
PROC: 0JH63XZ Insertion of Tunneled Vascular Access Device into Chest Subcutaneous Tissue and Fascia, Percutaneous Approach (ICD-10-PCS; principal; 2018-10-22 12:00)
DX: T82.41XA Breakdown (mechanical) of vascular dialysis catheter, initial encounter (principal); I12.0 Hypertensive chronic kidney disease with stage 5 chronic kidney disease or end stage renal disease; E11.22 Type 2 diabetes mellitus with diabetic chronic kidney disease; Y83.8 Other surgical procedures as the cause of abnormal reaction of the patient, or of later complication, without mention of misadventure at the time of the procedure; N18.6 End stage renal disease; E83.51 Hypocalcemia; E83.39 Other disorders of phosphorus metabolism; L02.31 Cutaneous abscess of buttock; E11.65 Type 2 diabetes mellitus with hyperglycemia; Z99.2 Dependence on renal dialysis; Z68.27 Body mass index [BMI] 27.0-27.9, adult; Z79.84 Long term (current) use of oral hypoglycemic drugs; Y92.098 Other place in other non-institutional residence as the place of occurrence of the external cause
CPT/HCPCS: 82962; A4301; G0378; J0690; J1644; J1815; J2001; J3010; J3490; J7030; J7040; Q0092